=== PATIENT | female | born 1985 | race Caucasian/White ===

== ENCOUNTER 2024-06-08 08:01 | Outpatient (CLI) | payer BC, OTHER, SELFPAY ==
--- OUTSIDE RECORDS SUMMARY | 2024-06-09 21:32 | XMS_ITS | Patient Health Summary ---
Author Organization [facility] Address [address] [place] [address] Care Team Providers Care Degreaser Name Role Phone Unavailable Primary Care Provider Unavailabl e Note from [facility] [place] [facility] [place]non-owned Affiliates and Associated Physician Practices is amultiple site organization consisting of ambulatory clinics and hospital sitesin [place], [place], [place] and [place]. This disclosure is being madepursuant to the Care Everywhere program and may not contain all information available regarding this patient. Last updated 18.[facility] Social History Tobacco Use Types Packs/Day Years Used Date Smoking Tobacco: Never Assessed Sex and Gender Information Value Date Recorded Sex Assigned at Not on file Gender Identity Not on file Sexual Orientation Not on file Procedures * DERMATOPATHOLOGY(Performed 11/11/2022) Performed for Neoplasm of uncertain behavior of skin [ICD-10-CM], Dermatitis, unspecified [ICD-10-CM] Results * DERMATOPATHOLOGY (11/11/2022 12:00 AM CDT) Case Report Dermatopathology Report ? Case: [id number] ? Authorizing Provider: ??Anneliese Jay MD ?Collected: ? 11/11/2022 12:00 AM ? Ordering Location: ? [facility] ? Received: ?11/12/2022 02:09 PM ? Pathologist: ? Susi Schmitz MD ? Specimens: ?? A) - Skin, left lateral back ? B) - Skin, right ankle ? 3 3:39 PM CDT DERMATOPATHOLOGY LABORATORY Final Diagnosis Specimen A. 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 The specimen consists of a shave biopsy measuring 9x7x1 mm. Jar 0. Specimen B: Received is one formalin filled container labeled with the patient's name and designated right ankle. The specimen consists of a shave biopsy measuring 3x3x3 mm. Jar 0. 3 3:39 PM CDT DERMATOPATHOLOGY LABORATORY Microscopic Description Specimen A. SKIN, left lateral back: There are nests of melanocytes at the dermal-epidermal junction and within the dermis. Specimen B. SKIN, right ankle: There are lymphocytes around blood vessels and histiocytes between collagen bundles some of which are arranged in a palisade. The collagen is focally altered. Additional deeper sections were obtained and reviewed. 3 3:39 PM CDT DERMATOPATHOLOGY LABORATORY Disclaimer An external and internal positive and negative controls are appropriate for the histochemical, immunohistochemical and immunofluorescence stain(s) in this case (if any), except where stated explicitly. The performance characteristics of the stain(s) cited in this report were developed and its performance characteristic determined by the Dermatopathology Laboratory at [facility], directed by Dr. Alpesh Veliz. These tests need not be, and therefore are not, approved by the [place] Food and Drug Administration. The tests are used for clinical purposes. Billing Codes Specimen Charges Stain Charges 25228 63612 1 1 3 3:39 PM CDT DERMATOPATHOLOGY LABORATORY Embedded Images 3 3:39 PM CDT DERMATOPATHOLOGY LABORATORY Pathology/Cytology TISSUE SPECIMEN FROM SKIN / Unknown 11/11/2022 11/12/2022 2:09 PM CDT Miscellaneous samples (specimen) TISSUE SPECIMEN FROM SKIN / Unknown 11/11/2022 11/12/2022 2:09 PM CDT Anneliese Jay MD LAB - PATHOLOGY/CYTO LOGY ORDERABLES DERMATOPATHOLOGY LABORATORY [facility] - Department of Dermatology [facility] [address] [place] [address], [address] [phone]
--- OUTSIDE RECORDS SUMMARY | 2024-06-09 21:32 | XMS_ITS | Data Portability ---
Author Organization Donna GOYAL Address [address] [place] [address] Assessment No assessment recorded. Plan of Treatment Reminders Order Date Submit Date Provider Last Modified By Organization Details Last Modified Time Details Appointments None recorded. Lab lipid panel, serum 2016 017 [facility], [address], [address], [place], [address], 7 17:10:49 ferritin, serum or plasma 2016 017 [facility], [address], [address], [place], [address], 7 17:10:51 iron + total iron-bind ing capacity (TIBC), serum 2016 017 [facility], [address], [address], [place], [address], 7 17:10:50 CBC w/ auto diff 2016 017 [facility], [address], [address], [place], [address], 7 17:10:50 lipid panel, serum 2016 017 [facility], [address], [address], [place], [address], 8 13:25:27 AST/SGOT (aspartat e aminotran sferase), serum or plasma 2016 017 [facility], [address], [address], [place], [address], 8 05:14:33 ALT (alanine aminotran sferase), serum or plasma 2016 017 [facility], [address], [address], [place], [address], 8 05:14:33 HIV 1+2 AB + HIV 1 p24 Ag, qualitati ve immunoass ay, serum 2016 017 [facility], [address], [address], [place], [address], 8 05:14:33 urinalysi s, dipstick 2019 020 [facility] In-Office Order, Internal Use Only DO Not Attach Compendium DO Not Attach Compendium, Do Not Delete/merge, [id number] 0 10:55:12 pap, IG + HPV, cervical 2019 020 [facility], [address], [address], [place], [address], 0 14:09:42 bacterial vaginosis + vaginitis panel, vaginal 2019 020 [facility], [address], [address], [place], [address], 0 14:08:50 culture, vaginal/r ectal, streptoco ccus group B 2019 020 [facility], [address], [address], [place], [address], 0 14:08:50 test, urine 2019 020 [facility] In-Office Order, Internal Use Only DO Not Attach Compendium DO Not Attach Compendium, Do Not Delete/merge, [id number] 0 14:10:47 test, urine 2019 020 [facility] In-Office Order, Internal Use Only DO Not Attach Compendium DO Not Attach Compendium, Do Not Delete/merge, [id number] 0 13:21:01 Referral None recorded. Procedures None recorded. Surgeries None recorded. Imaging None recorded. Medication Orders lisinopri l 5 mg tablet 2016 017 [id number], [address], [place], [place], [id number], 0 10:32:32 hydrochlo rothiazid e 12.5 mg capsule 2016 017 [facility]79085, [address], [id number], 0 10:32:22 pravastat in 40 mg tablet 2016 017 [facility] #[id number], [address], [place], [place], [id number], 0 10:32:38 multivita min tablet 2019 020 [facility] #[id number], [address], [place], [place], [id number], 0 10:55:30 Calcium with Vitamin D 600 mg-10 mcg (400 unit) tablet 2019 020 [facility] #[id number], [address], [place], [place], [id number], 0 10:55:28 Patient TargetsNo targets recorded. Patient Instructions Encounter Date Encounter Id Patient Instructions Last Modified By Organization Details Last Modified Time 08/18/2016 [id number] When You Want to Lose Weight: Care Instructions [email or web address] Not available 08/18/2016 15:48:44 anemia: care instructions hdoverma Not available 08/18/2016 15:48:44 Lab results were discussed oajao Not available 08/18/2016 16:02:55 02/16/2017 [id number] HIV testing: care instructions hdoverma Not available 02/16/2017 16:20:09 Lovastatin Labs in 6 weeks Follow up in 6 months and PRN oajao Not available 02/16/2017 19:42:03 Lab results were discussed oajao Not available 02/16/2017 19:43:19 06/22/2019 [id number] When You Want to Lose Weight: Care Instructions mwasserman Not available 06/22/2019 11:14:56 Reason for Referral None Reported. Results Created Date Observation Date Name Description Value Unit Range Abnormal Flag Note LastModifiedBy Organization Detail LastModifiedTime 12/30/19 20 12/30/2019 pregn anne test, urine HCG negati ve Not Available In-Office Order Internal Use Only DO Not Attach Compendium DO Not Attach Compendium, Do Not Delete/merge, [id number] 12/30/2019 15:20:00 09/16/19 17 09/16/2016 lipid panel , serum cholesterol, total 217 mg/dL 100-19 9 above high normal Not Available [facility] ([facility]) [address] [place], [address], 09/16/2016 17:10:49 09/16/19 17 09/16/2016 lipid panel , serum triglyceride s 201 mg/dL 0-149 above high normal Not Available [facility] ([facility]) [address], [place], [address], 09/16/2016 17:10:49 09/16/19 17 09/16/2016 lipid panel , serum LDL chol. (direct) 165 mg/dL 0-99 above high normal Not Available [facility] ([facility]) [address] [place], [address], 09/16/2016 17:10:49 09/16/19 17 09/16/2016 lipid panel , serum HDL cholesterol 35 mg/dL >39 below low normal Not Available [facility] ([facility]) [address] [place], [address], 09/16/2016 17:10:49 09/16/19 17 09/16/2016 lipid panel , serum VLDL cholesterol margarito 40 mg/dL 5-40 Not Available [facility] ([facility]) [address] [place], [address], 09/16/2016 17:10:49 09/16/19 17 09/16/2016 lipid panel , serum LDL cholesterol calc 142 mg/dL 0-99 above high normal Not Available [facility] ([facility]) [address] [place], [address], 09/16/2016 17:10:49 09/16/19 17 09/16/2016 lipid panel , serum comment: CAREER DEVELOPMENT COUNSELOR Not Available [facility] ([facility]) [address] [place], [address], 09/16/2016 17:10:49 09/16/19 17 09/16/2016 lipid panel , serum LDL/HDL ratio 4.1 ratio _unit s 0.0-3. 2 above high normal LDL/H DL RATIO MEN WOMEN 1/2 AVG.R ISK 1.0 1.5 AVG.R ISK 3.6 3.2 2X AVG.R ISK 6.2 5.0 3X AVG.R ISK 8.0 6.1 Not Available [facility] ([facility]) [address] [place], [address], 09/16/2016 17:10:49 09/16/19 17 09/16/2016 CBC w/ auto diff WBC 5.0 x10e3 /uL 3.4-10 .8 Not Available [facility] ([facility]) [address] [place], [address], 09/16/2016 17:10:49 09/16/19 17 09/16/2016 CBC w/ auto diff RBC 4.66 x10e6 /uL 3.77-5 .28 Not Available [facility] ([facility]) [address] [place], [address], 09/16/2016 17:10:49 09/16/19 17 09/16/2016 CBC w/ auto diff hemoglobin 13.1 g/dL 11.1-1 5.9 Not Available [facility] ([facility]) [address] [place], [address], 09/16/2016 17:10:49 09/16/19 17 09/16/2016 CBC w/ auto diff hematocrit 39.0 % 34.0-4 6.6 Not Available [facility] ([facility]) [address] [place], [address], 09/16/2016 17:10:49 09/16/19 17 09/16/2016 CBC w/ auto diff MCV 84 fL 79-97 Not Available [facility] ([facility]) [address] [place], [address], 09/16/2016 17:10:49 09/16/19 17 09/16/2016 CBC w/ auto diff MCH 28.1 pg 26.6-3 3.0 Not Available [facility] ([facility]) [address] [place], [address], 09/16/2016 17:10:49 09/16/19 17 09/16/2016 CBC w/ auto diff MCHC 33.6 g/dL 31.5-3 5.7 Not Available [facility] ([facility]) [address] [place], [address], 09/16/2016 17:10:49 09/16/19 17 09/16/2016 CBC w/ auto diff RDW 13.6 % 12.3-1 5.4 Not Available [facility] ([facility]) [address] [place], [address], 09/16/2016 17:10:49 09/16/19 17 09/16/2016 CBC w/ auto diff platelets 286 x10e3 /uL 150-37 9 Not Available [facility] ([facility]) [address] [place], [address], 09/16/2016 17:10:49 09/16/19 17 09/16/2016 CBC w/ auto diff neutrophils 39 % Not Available [facility] ([facility]) [address] [place], [address], 09/16/2016 17:10:49 09/16/19 17 09/16/2016 CBC w/ auto diff lymphs 51 % Not Available [facility] ([facility]) [address] [place], [address], 09/16/2016 17:10:49 09/16/19 17 09/16/2016 CBC w/ auto diff monocytes 8 % Not Available [facility] ([facility]) [address] [place], [address], 09/16/2016 17:10:49 09/16/19 17 09/16/2016 CBC w/ auto diff eos 2 % Not Available [facility] ([facility]) [address] [place], [address], 09/16/2016 17:10:49 09/16/19 17 09/16/2016 CBC w/ auto diff basos 0 % Not Available [facility] ([facility]) [address] [place], [address], 09/16/2016 17:10:49 09/16/19 17 09/16/2016 CBC w/ auto diff immature cells CAREER DEVELOPMENT COUNSELOR Not Available [facility] ([facility]) [address] [place], [address], 09/16/2016 17:10:49 09/16/19 17 09/16/2016 CBC w/ auto diff neutrophils (absolute) 2.0 x10e3 /uL 1.4-7. 0 Not Available [facility] ([facility]) [address] [place], [address], 09/16/2016 17:10:49 09/16/19 17 09/16/2016 CBC w/ auto diff lymphs (absolute) 2.5 x10e3 /uL 0.7-3. 1 Not Available [facility] ([facility]) [address] [place], [address], 09/16/2016 17:10:49 09/16/19 17 09/16/2016 CBC w/ auto diff monocytes(ab solute) 0.4 x10e3 /uL 0.1-0. 9 Not Available [facility] ([facility]) [address] [place], [address], 09/16/2016 17:10:49 09/16/19 17 09/16/2016 CBC w/ auto diff eos (absolute) 0.1 x10e3 /uL 0.0-0. 4 Not Available [facility] ([facility]) [address] [place], [address], 09/16/2016 17:10:49 09/16/19 17 09/16/2016 CBC w/ auto diff baso (absolute) 0.0 x10e3 /uL 0.0-0. 2 Not Available [facility] ([facility]) [address] [place], [address], 09/16/2016 17:10:49 09/16/19 17 09/16/2016 CBC w/ auto diff immature granulocytes 0 % Not Available [facility] ([facility]) [address] [place], [address], 09/16/2016 17:10:49 09/16/19 17 09/16/2016 CBC w/ auto diff immature grans (abs) 0.0 x10e3 /uL 0.0-0. 1 Not Available [facility] ([facility]) [address] [place], [address], 09/16/2016 17:10:49 09/16/19 17 09/16/2016 CBC w/ auto diff NRBC CAREER DEVELOPMENT COUNSELOR Not Available [facility] ([facility]) [place], [address], 09/16/2016 17:10:49 09/16/19 17 09/16/2016 CBC w/ auto diff hematology comments: CAREER DEVELOPMENT COUNSELOR Not Available [facility] ([facility]) [address] [place], [address], 09/16/2016 17:10:49 09/16/19 17 09/16/2016 iron + total iron- claudia ng capac ity (TIBC ), serum iron bind.cap.(TI BC) 359 ug/dL 250-45 0 Not Available [facility] ([facility]) [address] [place], [address], 09/16/2016 17:10:50 09/16/19 17 09/16/2016 iron + total iron- claudia ng capac ity (TIBC ), serum UIBC 304 ug/dL 131-42 5 Not Available [facility] ([facility]) [address] [place], [address], 09/16/2016 17:10:50 09/16/19 17 09/16/2016 iron + total iron- claudia ng capac ity (TIBC ), serum iron, serum 55 ug/dL 27-159 Not Available [facility] ([facility]) [address] [place], [address], 09/16/2016 17:10:50 09/16/19 17 09/16/2016 iron + total iron- claudia ng capac ity (TIBC ), serum iron saturation 15 % 15-55 Not Available [facility] ([facility]) [address] [place], [address], 09/16/2016 17:10:50 09/16/19 17 09/16/2016 candido tin, serum or plasm a ferritin, serum 26 NG/mL 15-150 Not Available [facility] ([facility]) [address], [place], [address], 09/16/2016 17:10:51 06/22/19 20 06/24/2019 pap, IG + HPV, cervi margarito diagnosis: Rajeev dan UNSAT ISFAC TORY FOR EVALU ATION . Not Available [facility] ([facility]) [address], [place], [address], 06/24/2019 14:09:42 06/22/19 20 06/24/2019 pap, IG + HPV, cervi margarito recommendati on: Rajeev dan Sugge st follo w up as clini vance appro priat e. Not Available [facility] ([facility]) [address], [place], [address], 06/24/2019 14:09:42 06/22/19 20 06/24/2019 pap, IG + HPV, cervi margarito specimen adequacy: Rajeev dan Speci men proce ssed and exami roberto, but unsat isfac tory for evalu ation of epith elial abnor malit y becau se of exces sive lubri cant. Not Available [facility] ([facility]) [address], [place], [address], 06/24/2019 14:09:42 06/22/19 20 06/24/2019 pap, IG + HPV, cervi margarito clinician provided ICD10: Rajeev dan Z01.4 19 Not Available [facility] ([facility]) [address] [place], [address], 06/24/2019 14:09:42 06/22/19 20 06/24/2019 pap, IG + HPV, cervi margarito performed by: Commen t Amand a S Campb ell, Cytot echno logis t (ASCP ) Not Available [facility] ([facility]) [address] [place], [address], 06/24/2019 14:09:42 06/22/19 20 06/24/2019 pap, IG + HPV, cervi margarito QC reviewed by: Rajeev Cerna , Umesh visor y Cytot echno logis t (ASCP ) Not Available [facility] ([facility]) [address] [place], [address], 06/24/2019 14:09:42 06/22/19 20 06/24/2019 pap, IG + HPV, cervi margarito . . Not Available [facility] ([facility]) [address], [place], [address], 06/24/2019 14:09:42 06/22/19 20 06/24/2019 pap, IG + HPV, cervi margarito note: Rajeev dan The Pap smear is a scree magalis test belkis roberto to aid in the detec tion of francesca ligna nt and malig nant condi tions of the uteri ne cervi x. It is not a diagn ostic proce dure and shoul d not be used as the sole means of detec ting cervi margarito cance r. Both false -posi tive and false -nega tive repor ts do occur . Not Available [facility] ([facility]) [address] [place], [address], 06/24/2019 14:09:42 06/22/19 20 06/24/2019 pap, IG + HPV, cervi margarito test methodology: Rajeev dan This liqui d based ThinP rep(R ) pap test was scree roberto with the use of an image guide brian florez Not Available [facility] ([facility]) [address] [place], [address], 06/24/2019 14:09:42 06/22/19 20 06/24/2019 pap, IG + HPV, cervi margarito HPV aptima Negati ve negati ve This nucle ic acid ampli ficat ion test detec ts fourt een high- risk HPV types (16,1 8,31, 33,35 ,39,4 5,51, 52,56 ,58,5 9,66, 68) witho ut diffe renti ation . Not Available [facility] ([facility]) [address], [place], [address], 06/24/2019 14:09:42 06/22/19 20 06/24/2019 bacte rial vagin osis + vagin itis panel , vagin al trich vag by CORDELIA Negati ve negati ve Not Available [facility] ([facility]) [address], [place], [address], 06/25/2019 14:08:50 06/22/19 20 06/24/2019 bacte rial vagin osis + vagin itis panel , vagin al chlamydia trachomatis, CORDELIA Negati ve negati ve Not Available [facility] ([facility]) [address], [place], [address], 06/25/2019 14:08:50 06/22/19 20 06/24/2019 bacte rial vagin osis + vagin itis panel , vagin al neisseria gonorrhoeae, CORDELIA Negati ve negati ve Not Available [facility] ([facility]) [address] [place], [address], 06/25/2019 14:08:50 06/22/19 20 06/25/2019 bacte rial vagin osis + vagin itis panel , vagin al atopobium vaginae Low - 0 score Not Available [facility] ([facility]) [address] [place], [address], 06/25/2019 14:08:50 06/22/19 20 06/25/2019 bacte rial vagin osis + vagin itis panel , vagin al bvab 2 Low - 0 score Not Available [facility] ([facility]) [address] [place], [address], 06/25/2019 14:08:50 06/22/19 20 06/25/2019 bacte rial vagin osis + vagin itis panel , vagin al megasphaera 1 Low - 0 score Calcu late total score by keely houser the 3 indiv idual bacte rial vagin osis (BV) marke r score s toget her. Total score is inter prete d as follo ws: Total score 0-1: Indic ates the absen ce of BV. Total score 2: Indet ermin ate for BV. Addit ional clini margarito data shoul d be evalu ated to estab radha a diagn osis. Total score 3-6: Indic ates the prese nce of BV. This test was devel oped and its perfo rmanc e savana cteri stics deter mined by [facility]. It has not been clear ed or appro mau by the Food and Drug Admin istra tion. The FDA has deter mined that such clear ance or appro audrey is not neces sindy. Not Available [facility] ([facility]) [address] [place], [address], 06/25/2019 14:08:50 06/22/19 20 06/25/2019 bacte rial vagin osis + vagin itis panel , vagin al liang albicans, CORDELIA Negati ve negati ve Not Available [facility] ([facility]) [address] [place], [address], 06/25/2019 14:08:50 06/22/19 20 06/25/2019 bacte rial vagin osis + vagin itis panel , vagin al liang glabrata, CORDELIA Negati ve negati ve Not Available [facility] ([facility]) [address] [place], [address], 06/25/2019 14:08:50 06/22/19 20 06/24/2019 cultu re, vagin al/re ctal, strep tococ cus group B strep gp B CORDELIA Negati ve negati ve Cente rs for Disea se Contr ol and Preve ntion (CDC) and Ameri can Congr ess of Obste trici ans and Gynec ologi sts (ACOG ) guide lines for preve ntion of perin atal group B strep tococ margarito (GBS) disea se speci fy co-co llect ion of a vagin al and recta l swab speci men to maxim ize sensi tivit y of GBS detec tion. Per the CDC and ACOG, swabb ing both the lower vagin a and rectu m subst antia lly incre ases the yield of detec tion simba red with sampl ing the vagin a alone . Penic illin G, ampic illin , or cefaz deepthi are indic ated for intra partu m proph ylaxi s of perin atal GBS colon izati on. Refle x susce ptibi lity testi ng shoul d be perfo rmed prior to use of clind amyci n only on GBS isola peter from penic illin -mich rgic women who are consi dered a high risk for anaph ylaxi s. Treat ment with vanco mycin witho ut addit ional testi ng is warra nted if resis tance to clind amyci n is noted . Not Available [facility] ([facility]) [address], [place], [address], 06/25/2019 14:08:50 06/22/1906/22/2019 urina lysis , dipst ick Leukocytes Negati ve Not Available In-Office Order Internal Use Only DO Not Attach Compendium DO Not Attach Compendium, Do Not Delete/merge, 06/22/2019 10:37:14 06/22/19 20 06/22/2019 urina lysis , dipst ick Nitrite negati ve Not Available In-Office Order Internal Use Only DO Not Attach Compendium DO Not Attach Compendium, Do Not Delete/merge, 06/22/2019 10:37:14 06/22/19 20 06/22/2019 urina lysis , dipst ick Urobilinogen .2 Not Available In-Of fice Order Internal Use Only DO Not Attach Compendium DO Not Attach Compendium, Do Not Delete/merge, 06/22/2019 10:37:14 06/22/19 20 06/22/2019 urina lysis , dipst ick Protein Trace Not Available In-Office Order Internal Use Only DO Not Attach Compendium DO Not Attach Compendium, Do Not Delete/merge, 06/22/2019 10:37:14 06/22/19 20 06/22/2019 urina lysis , dipst ick pH 6.0 Not Available In-Office Order Internal Use Only DO Not Attach Compendium DO Not Attach Compendium, Do Not Delete/merge, 06/22/2019 10:37:14 06/22/19 20 06/22/2019 urina lysis , dipst ick Blood Non-He molyze d: Trace Not Available In-Office Order Internal Use Only DO Not Attach Compendium DO Not Attach Compendium, Do Not Delete/merge, 06/22/2019 10:37:14 06/22/19 20 06/22/2019 urina lysis , dipst ick Specific [place] 1.030 Not Available In-Off ice Order Internal Use Only DO Not Attach Compendium DO Not Attach Compendium, Do Not Delete/merge, 06/22/2019 10:37:14 06/22/19 20 06/22/2019 urina lysis , dipst ick Ketone Negati ve Not Available In-Office Order Internal Use Only DO Not Attach Compendium DO Not Attach Compendium, Do Not Delete/merge, 06/22/2019 10:37:14 06/22/19 20 06/22/2019 urina lysis , dipst ick Bilirubin Negati ve Not Available In-Office Order Internal Use Only DO Not Attach Compendium DO Not Attach Compendium, Do Not Delete/merge, 06/22/2019 10:37:14 06/22/19 20 06/22/2019 urina lysis , dipst ick Glucose Negati ve Not Available In-Office Order Internal Use Only DO Not Attach Compendium DO Not Attach Compendium, Do Not Delete/merge, 06/22/2019 10:37:14 09/02/19 20 09/02/2019 pregn anne test, urine HCG negati ve Not Available In-Office Order Internal Use Only DO Not Attach Compendium DO Not Attach Compendium, Do Not Delete/merge, [id number] 09/02/2019 11:19:31 02/20/20 21 02/19/2021 XR, ankle No observ ation record ed. [facility] ([facility]) [address] [place], [address], 02/19/2021 14:46:03 03/25/2002/19/2021 XR, ankle No observ ation record ed. [facility] ([facility]) [address] [place], [address], 03/27/2021 08:04:50 Result Notes None recorded. Problems Name Problem SNOMED Code Status Onset Date Resolution Date Notes Provider Name and Address Organization Details Recorded Time Pure hypercholeste rolemia 868950449 Active Not Available [facility] 11:48:55 Abnormal liver function 52214656 Active Not Available [facility] 11:48:55 Disorder of lipid metabolism 701540382 Active Not Available [facility] 11:48:55 Hyperlipidemi a 11874195 Active Not Available [facility] 11:48:55 Memory impairment 813149692 Active Not Available [facility] 11:48:55 Candidiasis of vagina 86097507 Active Not Available [facility] 11:48:55 Benign hypertension 21286309 Active Not Available [facility] 11:48:55 Overweight 010668315 Active Not Available [facility] 11:48:55 Problem Notes None recorded. Procedures Surgical History Date Name Laterality Status Provider Name and Address Organization Details Recorded Time 6 drainage of breast abscess completed Anusha Marina [facility] 06/22/2019 10:35:58 6 Date of Last Pap Smear completed Derrick Lemus [facility] 06/21/2019 18:10:13 Tubal Ligation completed Yeny Grande [facility] 05/29/2014 16:13:57 Imaging Results Imaging Date Name Status LastModified by Organiz ation Details LastModified Time 02/19/2021 XR, ankle completed [facility] ([facility]) [address] [place], [address], 02/19/2021 14:46:03 02/19/2021 XR, ankle completed [facility] ([facility]) [address] [place], [address], 03/27/2021 08:04:50 Procedure Notes None recorded. Medical Equipment None Reported. Allergies No known drug allergies Medications Name Sig Start Date Stop Date Status Note LastModified by Organization Details LastModified Time multivitami n tablet Take 1 tablet every day by oral route. active Not Available Not Available No t Available atorvastati n 10 mg tablet active Not Available Not Available Not Available pravastatin 40 mg tablet Take 1 tablet every day by oral route for 30 days. 06/22 completed Not Available Not Available Not Available ibuprofen 800 mg tablet active Not Available Not Available Not Available terconazole 0.8 % vaginal cream Insert 1 applicato rful every day by vaginal route for 3 days. 02/25 completed Not Available Not Available Not Available sulfamethox azole 800 mg-trimetho prim 160 mg tablet 08/18 completed Not Available Not Available Not Available Vitamin tablet Take 1 tablet every day by oral route as directed. 02/25 completed Not Available Not Available Not Available oxycodone-a cetaminophe n 5 mg-325 mg tablet 08/18 completed Not Available Not Available Not Available amoxicillin 875 mg tablet 02/25 completed Not Available Not Available Not Available cephalexin 500 mg capsule 08/18 completed Not Available Not Available Not Available hydrochloro thiazide 12.5 mg capsule Take 1 capsule every day by oral route for 90 days. 06/22 completed Not Available Not Available Not Available lisinopril 5 mg tablet Take 1 tablet every day by oral route for 90 days. 06/22 completed Not Available Not Available Not Available lisinopril 10 mg-hydrochl orothiazide 12.5 mg tablet Take 1 tablet every day by oral route for 90 days. 02/26 completed Not Available Not Available Not Available hydrochloro thiazide 12.5 mg tablet Take 1 tablet every day by oral route for 90 days. 02/25 completed Not Available Not Available Not Available Calcium with Vitamin D 600 mg-10 mcg (400 unit) tablet Take 1 tablet twice a day by oral route. 2019 active Not Available Not Available Not Avai lable calcium 600 mg (as carbonate)- vitamin D3 20 mcg (800 unit) tablet Take 1 tablet twice a day by oral route for 30 days. 02/25 completed Not Available Not Available Not Available Vitals Date Recorded Body weight Provider Name an d Address Organization Details Last Updated DateTime 06/22/2019 00701.33 g Anusha booker [facility] 06/22/2019 10:30:22 Date Recorded Body height Provider Name an d Address Organization Details Last Updated DateTime 09/02/2019 160.02 cm Lima Quijano MA [facility] 09/01 11:16:41 Date Recorded Body mass index (BMI) Body weight Provider Name and Address Organization Details Last Updated DateTime 09/02/2019 33.7 kg/m2 83116.55 g Lima Quijano [facility] 09/02/2019 11:17:30 Date Recorded Body height Provider Name an d Address Organization Details Last Updated DateTime 08/18/2016 160.02 cm Cathi Herrera [facility] 017 15:36:31 Date Recorded Body weight Body mass index (BMI) Provider Name and Address Organization Details Last Updated DateTime 08/18/2016 36224.7 g 34.9 kg/m2 Cathi Herrera [facility] 08/18/2016 15:36:38 Date Recorded Heart rate Provider Name an d Address Organization Details Last Updated DateTime 08/18/2016 76 /min Cathi Herrera MA [facility] 017 15:37:10 Date Recorded Body temperature Provider Name a nd Address Organization Details Last Updated DateTime 08/18/2016 98.3 [degF] Cathi Herrera MA [facility] 2016 15:37:13 Date Recorded Oxygen saturation Oxygen saturation in Arterial blood by Pulse oximetry Provider Name and Address Organization Details Last Updated DateTime 08/18/2016 99 % 99 % Cathi RubinverTYSON [facility] 08/18/2016 15:37:16 Date Recorded Body height Provider Name an d Address Organization Details Last Updated DateTime 02/16/2017 160.02 cm Cathi Herrera TYSON [facility] 017 15:46:35 Date Recorded Body mass index (BMI) Body weight Provider Name and Address Organization Details Last Updated DateTime 02/16/2017 34.5 kg/m2 04334.51 g Cathiher Herrera TYSON [facility] 02/16/2017 15:46:41 Date Recorded Heart rate Provider Name an d Address Organization Details Last Updated DateTime 02/16/2017 97 /min Cathiher HerreraTYSON [facility] 017 15:47:53 Date Recorded Oxygen saturation Oxygen saturation in Arterial blood by Pulse oximetry Provider Name and Address Organization Details Last Updated DateTime 02/16/2017 99 % 99 % Cathi Herrera [facility] 02/16/2017 15:47:55 Date Recorded Body temperature Provider Name a nd Address Organization Details Last Updated DateTime 02/16/2017 98.2 [degF] Cathi RubinverTYSON [facility] 2016 15:48:00 Date Recorded Systolic blood pressure Diastolic blood pressure Provider Name and Address Organization Details Last Updated DateTime 06/22/2019 130 mm[Hg] 86 mm[Hg] Anusha Marina [facility] 06/22/2019 10:31:49 Date Recorded Systolic blood pressure Diastolic blood pressure Provider Name and Address Organization Details Last Updated DateTime 08/18/2016 126 mm[Hg] 70 mm[Hg] Cathi Herrera MA [facility] 08/18/2016 15:38:53 Date Recorded Systolic blood pressure Diastolic blood pressure Provider Name and Address Organization Details Last Updated DateTime 02/16/2017 106 mm[Hg] 64 mm[Hg] Cathi Herrera MA [facility] 02/16/2017 15:49:06 Social History Question Answer Notes LastModified by Organizat ion Details LastModified Time Tobacco Smoking Status Never Smoker August TYSON Grande [facility] 05/29/2014 16:13:57 Do You Have An Advance Directive? Yes Information not available 05/29/2014 What Is Your Level Of Alcohol Consumption? Occasional Information not available 05/29/2014 Is Blood Transfusion Acceptable In An Emergency? Yes Information not available 08/23/2015 What Is Your Level Of Caffeine Consumption? Occasional Information not available 05/29/2014 How Much Tobacco Do You Chew? None Information not available 05/29/2014 Are You Currently Employed? Yes Information not available 05/29/2014 What Type Of Diet Are You Following? REGULAR Information not available 05/29/2014 Do You Or Have You Ever Used E-cigarettes Or Vape? 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 No Information not available 05/29/2014 Hard Of Hearing Or Deaf In One Or Both Ears? No Information not available 05/29/2014 Legally Blind In One Or Both Eyes? No Information no t available 05/29/2014 Live Alone Or With Others? With Others Information not available 05/29/2014 What Was The Date Of Your Most Recent Tobacco Screening? 09/02/2019 Information not available 09/02/2019 How Many Children Do You Have? 3 Information not available 05/29/2014 Performs Monthly Self-breast Exam? Yes Information no t available 05/29/2014 Do You Use Protection During Sex? No Information not available 08/23/2015 What Is Your Relationship Status? Information not available 08/23/2015 Seat Belts Used Routinely Yes Information not available 05/29/2014 Are You Sexually Active? Yes Information not available 05/29/2014 Smoke Alarm In Home Yes Information not available 05/29/2014 Do You Or Have You Ever Used Smokeless Tobacco? Never Used Smokeless Tobacco Information not available 06/22/2019 How Much Tobacco Do You Smoke? No Information not available 02/16/2017 General Stress Level Low Information not available 08/23/2015 Do You Use Sunscreen Routinely? Yes Information not available 05/29/2014 On What Date Was Tobacco Cessation Counseling Provided? 09/02/2019 Information not available 09/02/2019 How Many Years Have You Smoked Tobacco? 0 Information not available 08/18/2016 Sex: Unknown Functional Status Question Answer Note LastModified by Organizat ion Details LastModified Time Are you able to care for yourself? Yes Information not available 05/29/2014 What is your exercise level? Occasional Information not available 05/29/2014 Mental Status None recorded. Family History Relationship Description Onset Age of this Age Resolved Age Notes LastModified by Organization Details LastModified Time Father Hypercholesni martinez Not available 08/22 14:18:23 Father Malignant tumor of prostate juan Not available 08/22 14:18:23 Father Hyperchlucille martinez Not available 08/22 14:18:23 Sister Hypertensive disorder adolfoasserman Not available 08/22 14:18:23 Sister Hypertensive disorder adolfoasserman Not available 08/22 14:18:23 Medical History Condition Response Other Y High Blood Pressure Y Breast Cancer N Kidney or Bladder Problems N Thyroid Problems N GI Problems N Lung Disease N Depression N Blood Clots N Acne N Breast Problem N Eating Disorder N Anemia N Anesthesia Complications N Headaches/Migraines N Anxiety Disorder N Ovarian Cancer N Diabetes N Muscle, Joint, or Bone Problems N Blood Transfusions N Seizures/Epilepsy N Polyps N Infertility N Acid Reflux (GERD) N Cancer N Abuse/Domestic Violence N Asthma N Endometriosis N High Cholesterol Y Hepatitis N Liver Disease N Heart Disease N Pre-Eclampsia N Osteoporosis N Gynecological History Statement/Question Response Abnormal Pap N Flow Moderate On BCP's at Conception? N STIs/STDs N HPV Vaccine N Duration of Flow (days) 4 Age at Menarche 11 Current Control Method Tubal Ligat ion Age at First Child 24 Sexually Active? Y Menses Monthly Y Date of Last Pap Smear 08/23/2015 Sexual Problems? N LMP Approximate Desired Control Method Sterilizati on Obstetrics History GPAL:G 3 P 3 0 0 3 Type Value Multiple Births 0 Full Term 3 Induced 0 Spontaneous 0 Premature 0 Living 3 Ectopics 0 Total 3 Immunizations Vaccine Type Date Status Note Provider Nam e and Address Organization Details Recorded Time Influenza, split virus, trivalent, preservative 5 completed Not Available [facility] 06/04/2019 02:46:37 COVID-19 vaccine, vector-nr, rS-Ad26, PF, 0.5 mL 1 completed Not Available [facility] 03/25/2021 21:27:50 Influenza, split virus, quadrivalent, preservative 6 completed Not Available [facility] 06/04/2019 02:44:54 Tdap 9 completed Not Available [facility] 03/25/2021 21:27:50 Influenza, split virus, quadrivalent, preservative 7 completed Not Available [facility] 06/04/2019 02:34:21 HPV9 0 completed TYSON Magaña, [place] - [facility] 06/22/2019 12:41:39 HPV9 0 completed Lima Quijano [place], [place] - [facility] 09/02/2019 13:18:17 HPV9 0 completed Anusha Marina [place], [place] - [facility] 12/30/2019 15:20:43 Influenza, split virus, quadrivalent, preservative 5 completed Not Available [facility] 06/04/2019 02:32:08 Past Encounters Encounter ID Performer Location Encounter Start Date Encounter Closed Date Diagnosis/Indication Diagnosis SNOMED-CT Code Diagnosis ICD10 Code Diagnosis Note [id number] Buster (Adult Med) [address] [place] [address] 05/29/2014 15:27:57 05/29/2014 17:27:44 Influenza vaccine needed 1207363821 106 Benign hypertension 56158825 patient education, low salt Overweight 745206455 [id number] TYSON Walsh (Adult Med) [address] [place] [address] 07/17/2014 15:55:32 07/17/2014 17:08:06 Benign hypertension 53103078 patient education, low salt Pure hypercholesterolemia 479476511 Her LDL is 158, low fat, low carbohydra te diet Labs in 6 weeks [id number] Yeny TYSON Grande (Adult Med) [address] [place] [phone] 10/19/2014 11:38:58 10/19/2014 12:15:48 Benign hypertension 58022965 Well controlled on her current regimen, low salt diet Disorder o f lipid metabolism 590216974 Mild improvemen t, however she is not optimal Continue diet, weight loss and lifestyle changes [id number] Erika Catalan [facility] (Adult Med) [address] [place] [phone] 01/31/2015 11:38:16 01/31/2015 14:20:11 Influenza vaccine needed 0366272236 106 Hyperlipidemia 13109133 Benign hypertension 13798013 Well controlled on her current regimen, low salt diet [id number] MD Buster Badillo (Adult Med) [address] [place] [phone] 07/30/2015 11:34:23 07/30/2015 12:23:09 Benign hypertension 87562332 I10 Well controlled on her current regimen and a low salt diet, she describes postural symptoms Memory impairment 039540 006 R41.3 [id number] Derrick Lemus [facility]uster ([facility]) [address] [place] [address] 08/23/2015 10:19:11 08/23/2015 14:21:10 Gynecologic examination 24655432 Z01.939 [id number] MD Buster Badillo (Adult Med) [address] [place] [phone] 0 02/26/2016 15:18:06 02/26/2016 16:04:22 Influenza vaccine needed 9847120912 106 Z23 Benign hypertension 1072 5009 I10 Well controlled on her current regimen and a low salt diet. Memory impairment 153103 006 R41.3 This has improved [id number] MD Buster Badillo (Adult Med) [address] [place] [phone] 0 08/18/2016 15:32:49 08/18/2016 15:53:13 Overweight 259042383 E66.3 Benign hypertension 1072 5009 I10 Well controlled on her current regimen and a low salt diet. Anemia 588862864 D64.9 Disorder o f lipid metabolism 181775141 E78.9 [id number] MD Buster Badillo (Adult Med) [address] [place] [phone] 0 02/16/2017 15:10:23 02/16/2017 16:23:50 Benign hypertension 04344436 I10 Well controlled on her current regimen and a low salt diet. Disorder o f lipid metabolism 926909842 E78.9 She has a strong FHX. of CVS disease, I will add a statin, side effects were discussed. Influenza vaccine needed 6268986848 106 Z23 HIV screening 168497731 Z11.4 Iron deficiency 97462251 E61.1 Her ferritin levels were low but her iron and Hb/Hct were normal [id number] Derrick Goins ([employer]) [address] [place] [id number] 0 06/22/2019 10:20:14 06/23/2019 10:16:58 Gynecologic examination 66488741 Z01.419 Active or passive immunization 383125984 Z23 Overweight 733599324 E66 .3 [id number] TYSON Melendez ([employer]) [address] [place] [phone] 0 09/02/2019 10:20:07 09/09/2019 13:26:09 Active or passive immunization 220238810 Z23 [id number] TYSON Magaña ([employer]) [address] [place] [phone] 0 12/30/2019 15:08:31 01/02/2020 09:37:41 Active or passive immunization 487916179 Z23 Health Concerns Section Related Observation LastModified by Organization Detai ls LastModified Time None Recorded Concern Status LastModified by Organization Details LastModified Time None Recorded Advance Directives Directive Y: Payers Encounter Date Sequence Insurance Name Policy Number Policy Duncan Covered Member ID Duncan Member ID Guarantor Name 08/18/2016 1 [facility] PRIOR TO 11/15/2020 (MEDICAID REPLACEMENT - HMO) Tammy Burdick [id number] Tammy Burdikc 02/16/2017 1 [facility] PRIOR TO 11/15/2020 (MEDICAID REPLACEMENT - HMO) Tammy Burdick [id number] Tammy Burdick 06/22/2019 1 [place] [id number] X David Burdick [id number] Tammy Burdick 09/02/2019 1 [place] [id number] X David Burdick [id number] Tammy Burdick 12/30/2019 1 [place] [id number] X David Burdick [id number] Tammy Burdick Notes Date Note Type Note Provider Name and Address Organization Details Recorded Time 08/18/2016 text/html Hypertension F/UReported bypatient.Associat ed Symptoms:no dizziness; no lightheadedness; no chest pain; no shortness of breath; no palpitations; no edema; no calf pain with exertion Lifestyle:regular exercise; limiting/avoiding salt Medications:taking medications as directed; no side effects from medication Yara Ventura MD Attn: Accounting[address] [place], [address], [facility] [place] 08/18/2016 16:03:06 06/22/2019 text/html 34 y/o here for ROMI. She denied complaints during this visit and feels well overall. Derrick arguello [facility] 06/22/2019 18:56:35 06/22/2019 text/html Annual GYNReport ed bypatient.Menstrua l cycle:Normal menses Urinary symptoms:No hematuria; No incontinence Vulva:No genital lesion Vagina:Normal vaginal discharge Breast:No breast pain; No breast lump; No nipple discharge Sexual complaints:No sexual complaints; No pain during intercourse; Normal libido Menopausal Symptoms:No menopausal symptoms; Normal vaginal lubrication Psychological symptoms:No depression; No anxiety; No PMDD Derrick arguello [facility] 06/22/2019 18:56:35 OBGyn Episode Ob Episode Information Episode Created Date Number of Fetuses Patient Bloodtype Patient rh Status Prepregnancy Weight lbs Domestic Partner Domestic Partner Phone Father Name Travel Cota Status 08/23/19 16 1 CLOSED Fetus Data First Name Last Name Admitted to NICU Weight (g) Sex Living Outcome Pediatric Complications Fetus ID Race Codes Race Delivery Type 4082.32 8 M Full Term [id number] Standard Vaginal Delivery Elvis Calculation Initial Elvis Date Initial Exam Date Initial Exam Provider Initial Ultrasound Date Last Menstrual Period Date Ultra Sound Weeks Gestation 0 Eighteen To Twenty Week Elvis Update Ultra Sound Date Fundal Height At Umbil Quickening Date Ultra Sound Latest Weeks Gestation Final Elvis Confirmed By Final Elvis Confirmed Date Final Elvis Date Ultra Sound Latest Days Gestation 0 0 Menstrual History Last Menstrual Date Menses Monthly On Bcp Conception Prior Menses Frequency Hcg Plus Date Menarche Onset Age Delivery Information Delivery Date Delivery Type Labor Anesthesia Weeks Gestation Incision Type Labor Labor Length Hrs Delivered By Post Complications Tubal Sterilization Discharge Date Comments 1 None 40 false Discharge Information Feeding Method Contraceptive Method Maternal HG B and HCT Levels Ob Episode Information Episode Created Date Number of Fetuses Patient Bloodtype Patient rh Status Prepregnancy Weight lbs Domestic Partner Domestic Partner Phone Father Name Travel Cota Status 08/23/19 16 1 CLOSED Fetus Data First Name Last Name Admitted to NICU Weight (g) Sex Living Outcome Pediatric Complications Fetus ID Race Codes Race Delivery Type 3175.14 4 F Full Term [id number] Standard Vaginal Delivery Elvis Calculation Initial Elvis Date Initial Exam Date Initial Exam Provider Initial Ultrasound Date Last Menstrual Period Date Ultra Sound Weeks Gestation 0 Eighteen To Twenty Week Elvis Update Ultra Sound Date Fundal Height At Umbil Quickening Date Ultra Sound Latest Weeks Gestation Final Elvis Confirmed By Final Elvis Confirmed Date Final Elvis Date Ultra Sound Latest Days Gestation 0 0 Menstrual History Last Menstrual Date Menses Monthly On Bcp Conception Prior Menses Frequency Hcg Plus Date Menarche Onset Age Delivery Information Delivery Date Delivery Type Labor Anesthesia Weeks Gestation Incision Type Labor Labor Length Hrs Delivered By Post Complications Tubal Sterilization Discharge Date Comments 9 None 38 false Discharge Information Feeding Method Contraceptive Method Maternal HG B and HCT Levels Ob Episode Information Episode Created Date Number of Fetuses Patient Bloodtype Patient rh Status Prepregnancy Weight lbs Domestic Partner Domestic Partner Phone Father Name Travel Cota Status 08/23/19 16 1 CLOSED Fetus Data First Name Last Name Admitted to NICU Weight (g) Sex Living Outcome Pediatric Complications Fetus ID Race Codes Race Delivery Type 3628.73 6 M Full Term 14523 Standard Vaginal Delivery Elvis Calculation Initial Elvis Date Initial Exam Date Initial Exam Provider Initial Ultrasound Date Last Menstrual Period Date Ultra Sound Weeks Gestation 0 Eighteen To Twenty Week Elvis Update Ultra Sound Date Fundal Height At Umbil Quickening Date Ultra Sound Latest Weeks Gestation Final Elvis Confirmed By Final Elvis Confirmed Date Final Elvis Date Ultra Sound Latest Days Gestation 0 0 Menstrual History Last Menstrual Date Menses Monthly On Bcp Conception Prior Menses Frequency Hcg Plus Date Menarche Onset Age Delivery Information Delivery Date Delivery Type Labor Anesthesia Weeks Gestation Incision Type Labor Labor Length Hrs Delivered By Post Complications Tubal Sterilization Discharge Date Comments 3 [facility] idural 39 false Discharge Information Feeding Method Contraceptive Method Maternal HG B and HCT Levels
--- OUTSIDE RECORDS SUMMARY | 2024-06-09 21:32 | XMS_ITS | Referral Summary ---
Author Organization [facility] Address [address] [place] [address] Care Team Providers Care Wildlife Photographer Name Role Phone Unavailable Primary Care Provider Unavailabl e Source Comments [facility],non-owned Affiliates and Associated Physician Practices is amultiple site organization consisting of ambulatory clinics and hospital sitesin [place], [place], [place] and [place]. This disclosure is being madepursuant to the Care Everywhere program and may not contain all information available regarding this patient. Last updated 18.[facility] [employer] Social History Tobacco Use Types Packs/Day Years Used Date Smoking Tobacco: Never Assessed Sex and Gender Information Value Date Recorded Sex Assigned at Not on file Gender Identity Not on file Sexual Orientation Not on file Plan of Treatment Not on file
--- OUTSIDE RECORDS SUMMARY | 2024-06-09 21:32 | XMS_ITS | Encounter Summary ---
Author Organization [facility] Address [address] [place] [address] Care Team Providers Care Breastfeeding Peer Counselor Name Role Phone Unavailable Primary Care Provider Unavailabl e Encounter Details Date Type Department Care Team (Late st Contact Info) Description 11/11/2022 Lab Requisition [facility] - DermPath Lab [address] [facility] [place] [address] Anneliese Jay MD [address] [place] [address] [place] [address] Neoplasm of uncertain behavior of skin; Dermatitis, unspecified Social History Tobacco Use Types Packs/Day Years Used Date Smoking Tobacco: Never Assessed Sex and Gender Information Value Date Recorded Sex Assigned at Not on file Gender Identity Not on file Sexual Orientation Not on file documented as of this encounter Plan of Treatment Not on file documented as of this encounter Procedures Procedure Name Priority Date/Time Associated Diagnosis Comments DERMATOPATHOLOGY Routine 11/11/2022 12:0 0 AM CDT Neoplasm of uncertain behavior of skin [ICD-10-CM] Dermatitis, unspecified [ICD-10-CM] documented in this encounter Results * DERMATOPATHOLOGY (11/11/2022 12:00 AM CDT) Case Report Dermatopathology Report ? Case: [id number] ? Authorizing Provider: ??Anneliese Jay MD ?Collected: ? 11/11/2022 12:00 AM ? [facility] ? [facility] ? Received: ?11/12/2022 02:09 PM ? Pathologist: ? Susi Schmitz MD ? Specimens: ?? A) - Skin, left lateral back ? B) - Skin, right ankle ? 3 3:39 PM CDT DERMATOPATHOLOGY LABORATORY Final Diagnosis Specimen A. 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 Alpesh Veliz. These tests need not be, and therefore are not, approved by the [place] Food and Drug Administration. The tests are used for clinical purposes. Billing Codes Specimen Charges Stain Charges 12581 96535 1 1 3 3:39 PM CDT DERMATOPATHOLOGY LABORATORY Embedded Images 3 3:39 PM CDT DERMATOPATHOLOGY LABORATORY Pathology/Cytology TISSUE SPECIMEN FROM SKIN / Unknown 11/11/2022 11/12/2022 2:09 PM CDT Miscellaneous samples (specimen) TISSUE SPECIMEN FROM SKIN / Unknown 11/11/2022 11/12/2022 2:09 PM CDT Anneliese Jay MD LAB - PATHOLOGY/CYTO LOGY ORDERABLES DERMATOPATHOLOGY LABORATORY [facility] - Department of Dermatology [address], [address] [phone] documented in this encounter Visit Diagnoses Diagnosis Neoplasm of uncertain behavior of skin Dermatitis, unspecified documented in this encounter
--- OUTSIDE RECORDS SUMMARY | 2024-06-09 21:32 | XMS_ITS | Referral Summary ---
Author Organization [facility] Address [address] [place] [address] Care Team Providers Care Die Maker Electronic Name Role Phone No, Physician Primary Care Provider [phone] Allergies No known active allergies Social History Tobacco Use Types Packs/Day Years Used Date Smoking Tobacco: Never Tobacco Cessation:Counseling Given: Not Answered Alcohol Use Standard Drinks/Week Comments Not Currently 0 (1 standard drink = 0.6 oz pur e alcohol) Personal Safety Answer Date Recorded Have you ever been in or are you currently in a harmful physical or emotional relationship or is someone making you feel afraid or unsafe? Denies 02/06/2024 Comments No Sex and Gender Information Value Date Recorded Sex Assigned at Not on file Legal Sex Female 3:58 PM CDT Gender Identity Not on file Sexual Orientation Not on file Last Filed Vital Signs Vital Sign Reading Time Taken Comments Blood Pressure 119/76 02/06/2024 5:46 PM CDT Pulse 71 02/06/2024 5:46 PM CDT Temperature 36.9 ??C (98.4 ??F) 02/06/2024 5:46 PM CD T Respiratory Rate 18 02/06/2024 5:46 PM CDT Oxygen Saturation 100% 02/06/2024 5:46 PM CDT Inhaled Oxygen Concentration - - Weight 90.7 kg (200 lb) 02/06/2024 3:59 PM CDT Height - - Body Mass Index - - Plan of Treatment Not on file Insurance [employer]U [employer]ANSTON PPO Care Teams Die Maker Electronic Relationship Specialty Start Date End Date No, Physician PCP - General 02/06/24
--- OUTSIDE RECORDS SUMMARY | 2024-06-09 21:32 | XMS_ITS | Clinical Summary ---
Author Organization [facility] Address [address] [place] [address] Care Team Providers Care Cdl Service Technician Name Role Phone Unavailable Primary Care Provider Unavailabl e Source Comments [facility],non-owned Affiliates and Associated Physician Practices is amultiple site organization consisting of ambulatory clinics and hospital sitesin [place], [place], [place]. This disclosure is being madepursuant to the Care Everywhere program and may not contain all information available regarding this patient. Last updated 18.[facility] Social History Tobacco Use Types Packs/Day Years Used Date Smoking Tobacco: Never Assessed Sex and Gender Information Value Date Recorded Sex Assigned at Not on file Gender Identity Not on file Sexual Orientation Not on file Plan of Treatment Health Maintenance Due Date Last Done Comments PAP SMEAR 1985 HIV SCREENING 2000 HEPATITIS C SCREENING 04/26/2003 DTAP/TDAP/TD VACCINES (1 - Tdap) 2004 HEPATITIS B VACCINE (1 of 3 - 19+ 3-dose series) 2004 COVID-19 VACCINE ( - 2023-2 5 season) 2024 INFLUENZA VACCINE (#1) 2024 DEPRESSION SCREENING 05/18/2024 ZOSTER VACCINE (1 of 2) 2035 HIB VACCINE Aged Out No longer eligi ble based on patient's age to complete this topic HPV VACCINE Aged Out No longer eligi ble based on patient's age to complete this topic MENINGOCOCCAL (Group B) VACCINE Aged Out No longer eligible based on patient's age to complete this topic MENINGOCOCCAL VACCINE Aged Out No cliff nasir eligible based on patient's age to complete this topic PNEUMOCOCCAL VACCINE Aged Out No long er eligible based on patient's age to complete this topic
--- OUTSIDE RECORDS SUMMARY | 2024-06-09 21:32 | XMS_ITS | Clinical Summary ---
Author Organization [facility] Address [address] [place] [id number] Care Team Providers Care Roof Bolting Coal Miner Name Role Phone No, Physician Primary Care Provider [phone] Allergies No known active allergies Medical History Medical History Date Comments Hypertension Social History Tobacco Use Types Packs/Day Years [...] on file Sexual Orientation Not on file Obstetrics History Last Filed Vital Signs Vital Sign Reading [...] Mass Index - - Plan of Treatment Health Maintenance Due Date Last Done Comments Cervical Cancer Screening 1985 Depression Screening 1985 Hepatitis C Screening 1985 Varicella Vaccines (1 of 2 - 13+ 2-dose series) 1998 Hepatitis B Screening 2003 Regular Well Visit/Exam 18-64 2003 DTaP/Tdap/Td Vaccine (2 - Td or Tdap) 12/22/2018 12/22/2008 Covid-19 Vaccine (2 - season) 2024 07/20/2020 Influenza Vaccine (#1) 2024 , 02/16/2017, 02/26/2016, Additional history exists HPV Vaccines Completed 12/30/2019, 08/16, 06/22/2019 Pneumococcal vaccine <65 Aged Out No longer eligible based on patient's age to complete this topic Insurance [facility] Care Teams Roof Bolting Coal Miner Relationship Specialty Start Date End Date No, Physician PCP - General 02/06/24
[2024-06-30 14:34] VITALS: BMI 36.3
--- NOTE | 2024-06-30 14:34 | P.SLEEP_ITS ---
Sleep Study - Home Unattended Date of Study: 06/08/24 Ordering Provider: ALEXIA López-C Interpreting Provider: Sade Mcclendon DO [facility] Sleep Study Type: Watch PAT Height: 1.6 m Weight: 92.986 kg Body Mass Index: 36.3 Neck Circumference (inches): 16.75 [place]: 7 Reason for Sleep Study snoring, daytime hypersomnia Sleep History The patient is a 39-year-old female that had a sleep study ordered by her [facility] care for evaluation of sleep apnea. The patient admits to snoring loudly and excessive daytime sleepiness. She denies having interruptions in breathing while asleep. She denies choking or gasping at night. She denies having difficulty breathing on her back. She does have morning headaches. She denies having a dry or sore mouth / throat in the morning. She denies nocturnal heartburn. She denies nocturia. She does have difficulty staying asleep. She does have difficulty returning to sleep if she wakes up throughout the night. He denies any hypnotic or sedative use. She denies feeling anxious about sleep. She does feel tired or sleepy during the day. She does not feel tired in the morning. She denies having urge to fall asleep during the day. She denies feeling drowsy driving. He denies sleep paralysis, cataplexy and hypnagogic/ hypnopompic hallucinations. She does clench or grind her teeth. She denies kicking or jerking her legs excessively. She denies having restless feeling in her legs. She goes to bed at 10:00 p.m. on work days and at 11:00 p.m. on her days off. It takes her 15 minutes to fall asleep on work days and 30 minutes on her days off. She gets 7 hours of sleep per day. Her sleep is somewhat restorative on her days off. She denies taking any planned naps. She denies dream enactment behavior. She denies sleep walking. She consumes 1-2 caffeinated beverages per day. She denies tobacco and alcohol use. She denies exercising on a regular basis. [facility] Past Medical History Medical History History of drainage of abscess Hypertension Surgical History Surgical History History of tubal ligation Family History Family History Father Alcoholism in family member Colon cancer Hypertension Mother Alcoholism in family member Sibling Hypertension Grandparent Skin cancer Grandparent Bone cancer Breast cancer Social History Social History Smoking status: Never smoker Alcohol intake: current Alcohol use details: Occasionally Substance use: never Substance use type: does not use Do You Feel Safe in your Home?: Yes Lack of Transportation: No Lack of Food: Never True Current Housing: I Have Housing Concerned About Future Housing: No Difficulty Paying Gas/Electric Bills: No Difficulty Paying for Meds: No Currently Unemployed: No Education: High School Diploma/GED Living arrangements: with family Occupation/Education: occupation Additional occupation/education comments: [place] Gender identity (if verbalized by the patient): Female Sexual Orientation (if Verbalized by the Patient): Straight or Heterosexual Agree to blood products: Yes Medications Home Medications ?Medication ?Instructions ?Recorded ?Confirmed ?Type lisinopril 5 mg tablet 5 mg PO DAILY #90 tabs 04/06/24 Rx rosuvastatin 10 mg tablet 10 mg PO DAILY #90 tabs 04/06/24 Rx Sleep Procedure The sleep study was completed using PanizonT a technically adequate device with seven channels: peripheral arterial tone, actigraphy, body position, snore, respiratory movement, pulse oximetry, sleep staging, and heart rate. Prior to using the device, the patient received verbal and written instructions for its application and was provided with the help desk phone number for additional telephonic instruction with 24-hour availability of qualified personnel to answer questions. The study was scored using CMS guidelines. Sleep Architecture The total recording time is 9 hrs, 59 min. The total sleep time is 9 hrs, 24 min. Sleep latency is 21 minutes. REM latency is 159 minutes. The patient had 3 episodes of waking. Sleep architecture shows 16.2% deep sleep, 66.6% light sleep, and (as % Total Sleep Time) showed NREM (Light 66.6%; Deep 16.2%), and a 17.2% stage REM. The patient spent 84.6% of total sleep time in the supine position. Sleep efficiency was 94.16. Respiratory Analysis The overall AHI (pAHI 3%:) is 14.1. The central AHI is 2.5. The AHI was 10.8 in NREM and 29.2 in REM sleep. The AHI was 15.4 in Supine and 5.4 in Non-supine sleep. Percent of Tk Heni respirations is 0.0. Oximetry Data The oxygen desaturation index (EMPERATRIZ 4%:) is 6.6. The mean saturation is 95%, and the lowest saturation is 87%. Time spent with saturation < 88% is 0.4 minutes. Snoring Profile Snoring average intensity is 43 dB. The patient snored above 45 decibels for 109.1 minutes, 19.3% of sleep time. Cardiac Profile The average pulse rate is 62 beats per minutes. The lowest pulse rate is 50 bpm. The highest pulse rate reported is 90 bpm. Atrial fibrillation was not detected. Premature beats occur <0.1 per minute. Assessment and Plan Assessment and Plan (1) GIANNI (obstructive sleep apnea): Code(s): G47.33 - Obstructive sleep apnea (adult) (pediatric) Status: Acute Assessment and Plan: The patient had an overall AHI of 7.2 with desaturation down to 87%. This is consistent with mild sleep apnea. Due to the patient's hypertension, she qualifies for treatment. I recommend that the patient be prescribed Resmed AutoPAP 5-15 cm H2O, CPAP mask/filters/tubing and heated humidity. A mandibular advancement device is also an acceptable treatment method. This should be used with all episodes of sleep.? Compliance should be reviewed within 31-90 days of starting therapy for usage greater than 4 hours per night greater than 70% of the nights. The patient should be asked about symptoms such as?excessive daytime sleepiness, quality of sleep, decreased nocturia, increased?mental functioning such as memory, mood, and concentration. Data The data obtained during this sleep study is adequate for interpretation. Certification This sleep study has been reviewed by a board certified sleep medicine physician.
== END 2024-06-09 12:54 | disposition home or self-care (01) ==
LOC: ANHCSM 08:02
PROVIDERS: PCP Clinical Nurse Specialist; Visit Provider Clinical Nurse Specialist
DX: G47.33 Obstructive sleep apnea (adult) (pediatric) (principal); G47.10 Hypersomnia, unspecified
CPT/HCPCS: 95800

== ENCOUNTER 2024-08-01 08:09 | Outpatient (CLI) | payer BC, OTHER, SELFPAY ==
--- NOTE | ~2024-08-01 | US_ITS ---
Limited Abdominal Sonogram: Real-time sonographic imaging of the right upper quadrant was performed. Clinical History: Abnormal liver enzyme levels Findings: The liver appears echogenic, with no evidence of mass lesion or bile duct dilatation. Main portal vein demonstrates normal direction of flow. The gallbladder is unremarkable. The common bile duct measures 9 mm. The visualized pancreas, aorta, and IVC are unremarkable. Impression: Diffuse fatty infiltration of liver. Prominent common bile duct, nonspecific. Consider MRCP as indicated. Reviewed, dictated and finalized at location . Impression: Diffuse fatty infiltration of liver. Prominent common bile duct, nonspecific. Consider MRCP as indicated.
== END 2024-08-01 08:10 | disposition home or self-care (01) ==
LOC: GOSHIMG 08:09
PROVIDERS: PCP Clinical Nurse Specialist; Visit Provider Clinical Nurse Specialist
DX: R74.01 Elevation of levels of liver transaminase levels (principal); K76.0 Fatty (change of) liver, not elsewhere classified
CPT/HCPCS: 76705

== ENCOUNTER 2024-08-19 07:29 | Outpatient (CLI) | payer BC, OTHER, SELFPAY ==
--- NOTE | ~2024-08-19 | MR_ITS ---
EXAMINATION: MR MRCP wo con/w 3D wo ind pp DATE: 08/19/2024 08:37 INDICATION: Elevated liver transaminase levels with prominent common bile duct on prior ultrasound TECHNIQUE: Magnetic resonance imaging (MRI) of the abdomen was performed without and with 19 mL Multi phi intravenous contrast. Sequences included coronal T2-weighted SS-FSE, coronal T2-weighted FS SS- FSE, coronal T2-weighted FS FIESTA, axial T2-weighted FS FIESTA, axial T2-weighted FIESTA, sagittal T 2-weighted SS-FSE, axial T1-weighted dual-echo FSPGR, axial T2-weighted SS-FSE, axial T1-weighted LAV A, axial T2-weighted STIR FSE. Thick-slab T2-weighted FRFSE-XL images were obtained for magnetic reso nance cholangiopancreatography (MRCP). Rotating maximum intensity projection 3-D reconstructions of t he volumetric data were created by the technologist. Postcontrast sequences included a time course of axial T1-weighted LAVA. COMPARISON: Ultrasound dated 08/01/2024 FINDINGS: ABDOMEN MRI: Heart size is normal. No pericardial or pleural effusion. There is dependent sludge without evident g allstones within the otherwise normal appearing gallbladder. Prominent diffuse hepatic steatosis with signal dropout on opposed phase imaging. Spleen, pancreas, bilateral adrenal glands and kidneys are normal. Visual is portions of bowels are unremarkable with no obstruction. Small fat-containing umbil ical and left paraumbilical hernias. No pathologically enlarged abdominal or upper pelvic lymphadenop athy. Bones are unremarkable with normal marrow signal throughout. Mild disc height loss and mild dis c bulge resulting in mild central canal stenosis at L4-L5. ABDOMEN MRCP: No intrahepatic biliary ductal dilation. The common hepatic and proximal common bile du ct are dilated to 8 mm. The common bile duct smoothly tapers more distally without evident obstructin g stone. There does appear to be slight decrease in the T2 signal in the lumen of the distal common b ile duct which suggests additional sludge. IMPRESSION: 1. Mild dilation the common hepatic and proximal common bile ducts which tapers smoothly distally wit h no obstructing stones although there is suggestion of some sludge in the distal common bile duct as well as some dependently layering sludge in the gallbladder which is also without stones. 2. Diffuse hepatic steatosis. Reviewed, dictated and finalized at location A. IMPRESSION: 1. Mild dilation the common hepatic and proximal common bile ducts which tapers smoothly distally with no obstructing stones although there is suggestion of s ome sludge in the distal common bile duct as well as some dependently layering sludge in the gallbladder which is also without stones. 2. Diffuse hepatic steatosis.
--- OUTSIDE RECORDS SUMMARY | 2024-08-19 07:33 | XMS_ITS | Referral Summary ---
Author Organization [facility] Address [address] [place] [id number] Care Team Providers Care Mohs Surgeon Name Role Phone No, Physician Primary Care Provider [phone] Allergies No known active allergies Social History [...] 71 02/06/2024 5:46 PM CDT Temperature 36.9 C (98.4 F) 02/06/2024 5:46 PM CDT Respiratory Rate 18 02/06/2024 5:46 PM CDT Oxygen Saturation 100% 02/06/2024 5:46 PM CDT Inhaled Oxygen Concentration - - Weight 90.7 kg (200 lb) 02/06/2024 3:59 PM CDT Height - - Body Mass Index - - Plan of Treatment Not on file Insurance [employer] PPO Care Teams Mohs Surgeon Relationship Specialty Start Date End Date No, Physician PCP - General 02/06/24
--- OUTSIDE RECORDS SUMMARY | 2024-08-19 07:33 | XMS_ITS | Clinical Summary ---
Author Organization [facility] Address [address] [place] [phone] Care Team Providers Care Rubbing Bed Operator Name Role Phone No, Physician Primary Care Provider [phone] Allergies No known active allergies Medical History [...] Tdap) 12/22/2018 12/22/2008 Covid-19 Vaccine (2 - 2023- season) 2024 07/20/2020 Influenza Vaccine (#1) 2024 0, 02/16/2017, 02/26/2016, Additional history exists HPV Vaccines Completed 12/30/2019, 08/16, 06/22/2019 Pneumococcal vaccine <65 Aged Out No longer eligible based on patient's age to complete this topic Insurance [employer] P[employer] Care Teams Rubbing Bed Operator Relationship Specialty Start Date End Date No, Physician PCP - General 02/06/24
--- OUTSIDE RECORDS SUMMARY | 2024-08-19 07:33 | XMS_ITS | Data Portability ---
Author Organization [facility] Donna ANDERSEN Address [address] [place] [address] Assessment No assessment recorded. Plan of Treatment Reminders Order Date Submit Date Provider Last Modified By Organization Details Last Modified Time Details Appointments None recorded. Lab test, urine 2019 020 [facility] In-Office Order, Internal Use Only DO Not Attach Compendium DO Not Attach Compendium, Do Not Delete/merge, [id number] 13:21:01 test, urine 2019 020 [facility] In-Office Order, Internal Use Only DO Not Attach Compendium DO Not Attach Compendium, Do Not Delete/merge, [id number] 0 14:10:47 urinalysi s, dipstick 2019 020 mwasserman In-Office Order, Internal Use Only DO Not Attach Compendium DO Not Attach Compendium, Do Not Delete/merge, [id number] 0 10:55:12 pap, IG + HPV, cervical 2019 020 [facility], [address], [address], [place], [address], 0 14:09:42 bacterial vaginosis + vaginitis panel, vaginal 2019 020 [facility], [address], [address], [place], [address], 0 14:08:50 culture, vaginal/r ectal, streptoco ccus group B 2019 020 [facility], [address], [address], [place], [address], 0 14:08:50 lipid panel, serum 2016 017 [facility], [address], [place], [address], 8 13:25:27 AST/SGOT (aspartat e aminotran sferase), serum or plasma 2016 017 [facility], [address], [place], [address], 8 05:14:33 ALT (alanine aminotran sferase), serum or plasma 2016 017 [facility], [address] [facility] [address], [address], [place], [address], 8 05:14:33 HIV 1+2 AB + HIV 1 p24 Ag, qualitati ve immunoass ay, serum 2016 017 [facility], [address], [address], [place], [address], 8 05:14:33 lipid panel, serum 2016 017 [facility], [address], [address], [place], [address], 7 17:10:49 ferritin, serum or plasma 2016 017 [facility], [address], [place], [address], 7 17:10:51 iron + total iron-bind ing capacity (TIBC), serum 2016 017 [facility], [address], [address], [place], [address], 7 17:10:50 CBC w/ auto diff 2016 017 [facility], [address], [address], [place], [address], 7 17:10:50 Referral None recorded. Procedures None recorded. Surgeries None recorded. Imaging None recorded. Medication Orders multivita min tablet 2019 020 INTERFACE [facility] #[id number], [address], [place], [place], [id number], 0 10:55:30 Calcium with Vitamin D 600 mg-10 mcg (400 unit) tablet 2019 020 INTERFACE [facility] #19589, [address], [id number], 0 10:55:28 pravastat in 40 mg tablet 2016 017 [facility][id number], [address], [id number], 0 10:32:38 lisinopri l 5 mg tablet 2016 017 [facility] #69543, [address], [id number], 0 10:32:32 hydrochlo rothiazid e 12.5 mg capsule 2016 017 [facility] #93118, [address], [id number], 0 10:32:22 Patient TargetsNo targets recorded. Patient Instructions Encounter Date Encounter Id Patient Instructions Last Modified By Organization Details Last Modified Time 08/18/2016 [id number] When You Want to Lose Weight: Care Instructions [email or web address] Not available 08/18/2016 15:48:44 anemia: care instructions hdoverma Not available 08/18/2016 15:48:44 Lab results were discussed oajao Not available 08/18/2016 16:02:55 02/16/2017 [id number] HIV testing: care instructions hdoverma Not available 02/16/2017 16:20:09 Lovastatin Labs in 6 weeks Follow up in 6 months and PRN oajao Not available 02/16/2017 19:42:03 Lab results were discussed oajao Not available 02/16/2017 19:43:19 06/22/2019 [id number] When You Want to Lose Weight: Care Instructions mwasserman Not available 06/22/2019 11:14:56 Reason for Referral None Reported. Results Created Date Observation Date Name Description Value Unit Range Abnormal Flag Note LastModifiedBy Organization Detail LastModifiedTime 12/30/19 20 12/30/2019 pregn anne test, urine HCG negati ve Not Available In-Office Order Internal Use Only DO Not Attach Compendium DO Not Attach Compendium, Do Not Delete/merge, [id number] 12/30/2019 15:20:00 09/16/19 17 09/16/2016 lipid panel , serum cholesterol, total 217 mg/dL 100-19 9 above high normal Not Available [facility] ([facility]) [address] [place], [address], 09/16/2016 17:10:49 09/16/19 17 09/16/2016 lipid panel , serum triglyceride s 201 mg/dL 0-149 above high normal Not Available [facility] ([facility]) [address] [facility], [place], [address], 09/16/2016 17:10:49 09/16/19 17 09/16/2016 lipid panel , serum LDL chol. (direct) 165 mg/dL 0-99 above high normal Not Available [facility] ([facility]) [address] [facility] [place], [address], 09/16/2016 17:10:49 09/16/19 17 09/16/2016 lipid panel , serum HDL cholesterol 35 mg/dL >39 below low normal Not Available [facility] ([facility]) [address] [facility] [place], [address], 09/16/2016 17:10:49 09/16/19 17 09/16/2016 lipid panel , serum VLDL cholesterol margarito 40 mg/dL 5-40 Not Available [facility] ([facility]) [address] [facility] [place], [address], 09/16/2016 17:10:49 09/16/19 17 09/16/2016 lipid panel , serum LDL cholesterol calc 142 mg/dL 0-99 above high normal Not Available [facility] ([facility]) [address] [place], [address], 09/16/2016 17:10:49 09/16/19 17 09/16/2016 lipid panel , serum 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 2 above high normal LDL/H DL RATIO MEN WOMEN 1/2 AVG.R ISK 1.0 1.5 AVG.R ISK 3.6 3.2 2X AVG.R ISK 6.2 5.0 3X AVG.R ISK 8.0 6.1 Not Available [facility] ([facility]) [address] [facility] [place], [address], 09/16/2016 17:10:49 09/16/19 17 09/16/2016 CBC w/ auto diff WBC 5.0 x10e3 /uL 3.4-10 .8 Not Available [facility] ([facility]) [address] [place], [address], 09/16/2016 17:10:49 09/16/19 17 09/16/2016 CBC w/ auto diff RBC 4.66 x10e6 /uL 3.77-5 .28 Not Available [facility] ([facility]) [address] [place], [address], 09/16/2016 17:10:49 09/16/19 17 09/16/2016 CBC w/ auto diff hemoglobin 13.1 g/dL 11.1-1 5.9 Not Available [facility] ([facility]) [address] [place], [address], 09/16/2016 17:10:49 09/16/19 17 09/16/2016 CBC w/ auto diff hematocrit 39.0 % 34.0-4 6.6 Not Available [facility] ([facility]) [address] [place], [address], 09/16/2016 17:10:49 09/16/19 17 09/16/2016 CBC w/ auto diff MCV 84 fL 79-97 Not Available [facility] ([facility]) [address] [place], [address], 09/16/2016 17:10:49 09/16/19 17 09/16/2016 CBC w/ auto diff MCH 28.1 pg 26.6-3 3.0 Not Available [facility] ([facility]) [address] [place], [address], 09/16/2016 17:10:49 09/16/19 17 09/16/2016 CBC w/ auto diff MCHC 33.6 g/dL 31.5-3 5.7 Not Available [facility] ([facility]) [address] [place], [address], 09/16/2016 17:10:49 09/16/19 17 09/16/2016 CBC w/ auto diff RDW 13.6 % 12.3-1 5.4 Not Available [facility] ([facility]) [address] [place], [address], 09/16/2016 17:10:49 09/16/19 17 09/16/2016 CBC w/ auto diff platelets 286 x10e3 /uL 150-37 9 Not Available [facility] ([facility]) [address] [place], [address], 09/16/2016 17:10:49 09/16/19 17 09/16/2016 CBC w/ auto diff neutrophils 39 % Not Available [facility] ([facility]) [address] [place], [address], 09/16/2016 17:10:49 09/16/19 17 09/16/2016 CBC w/ auto diff lymphs 51 % Not Available [facility] ([facility]) [address] [place], [address], 09/16/2016 17:10:49 09/16/19 17 09/16/2016 CBC w/ auto diff monocytes 8 % Not Available [facility] ([facility]) [address] [place], [address], 09/16/2016 17:10:49 09/16/19 17 09/16/2016 CBC w/ auto diff eos 2 % Not Available [facility] ([facility]) [address] [place], [address], 09/16/2016 17:10:49 09/16/19 17 09/16/2016 CBC w/ auto diff basos 0 % Not Available [facility] ([facility]) [address] [place], [address], 09/16/2016 17:10:49 09/16/19 17 09/16/2016 CBC w/ auto diff immature cells BOAT RIGGER Not Available [facility] ([facility]) [address] [place], [address], 09/16/2016 17:10:49 09/16/19 17 09/16/2016 CBC w/ auto diff neutrophils (absolute) 2.0 x10e3 /uL 1.4-7. 0 Not Available [facility] ([facility]) [address] [place], [address], 09/16/2016 17:10:49 09/16/19 17 09/16/2016 CBC w/ auto diff lymphs (absolute) 2.5 x10e3 /uL 0.7-3. 1 Not Available [facility] ([facility]) [address] [place], [address], 09/16/2016 17:10:49 09/16/19 17 09/16/2016 CBC w/ auto diff monocytes(ab solute) 0.4 x10e3 /uL 0.1-0. 9 Not Available [facility] ([facility]) [address] [place], [address], 09/16/2016 17:10:49 09/16/19 17 09/16/2016 CBC w/ auto diff eos (absolute) 0.1 x10e3 /uL 0.0-0. 4 Not Available [facility] ([facility]) [address] [place], [address], 09/16/2016 17:10:49 09/16/19 17 09/16/2016 CBC w/ auto diff baso (absolute) 0.0 x10e3 /uL 0.0-0. 2 Not Available [facility] ([facility]) [address] [place], [address], 09/16/2016 17:10:49 09/16/19 17 09/16/2016 CBC w/ auto diff immature granulocytes 0 % Not Available [facility] ([facility]) [address] [place], [address], 09/16/2016 17:10:49 09/16/19 17 09/16/2016 CBC w/ auto diff immature grans (abs) 0.0 x10e3 /uL 0.0-0. 1 Not Available [facility] ([facility]) [address] [place], [address], 09/16/2016 17:10:49 09/16/19 17 09/16/2016 CBC w/ auto diff NRBC BOAT RIGGER Not Available [facility] ([facility]) [place], [address], 09/16/2016 17:10:49 09/16/19 17 09/16/2016 CBC w/ auto diff hematology comments: BOAT RIGGER Not Available [facility] ([facility]) [address] [place], [address], 09/16/2016 17:10:49 09/16/19 17 09/16/2016 iron + total iron- claudia ng capac ity (TIBC ), serum iron bind.cap.(TI BC) 359 ug/dL 250-45 0 Not Available [facility] ([facility]) [address] [place], [address], 09/16/2016 17:10:50 09/16/19 17 09/16/2016 iron + total iron- claudia ng capac ity (TIBC ), serum UIBC 304 ug/dL 131-42 5 Not Available [facility] ([facility]) [address] [place], [address], 09/16/2016 17:10:50 09/16/19 17 09/16/2016 iron + total iron- claudia ng capac ity (TIBC ), serum iron, serum 55 ug/dL 27-159 Not Available [facility] ([facility]) [address] [place], [address], 09/16/2016 17:10:50 09/16/19 17 09/16/2016 iron + total iron- claudia ng capac ity (TIBC ), serum iron saturation 15 % 15-55 Not Available [facility] ([facility]) [address] [place], [address], 09/16/2016 17:10:50 09/16/19 17 09/16/2016 candido tin, serum or plasm a ferritin, serum 26 NG/mL 15-150 Not Available [facility] ([facility]) [address] [facility], [place], [address], 09/16/2016 17:10:51 06/22/19 20 06/24/2019 pap, IG + HPV, cervi margarito diagnosis: Rajeev dan UNSAT ISFAC TORY FOR EVALU ATION . Not Available [facility] ([facility]) [address] [facility], [place], [address], 06/24/2019 14:09:42 06/22/19 20 06/24/2019 pap, IG + HPV, cervi margarito recommendati on: Rajeev dan Sugge st follo w up as clini vance appro priat e. Not Available [facility] ([facility]) [address] [facility], [place], [address], 06/24/2019 14:09:42 06/22/19 20 06/24/2019 pap, IG + HPV, cervi margarito specimen adequacy: Rajeev dan Speci men proce ssed and exami roberto, but unsat isfac tory for evalu ation of epith elial abnor malit y becau se of exces sive lubri cant. Not Available [facility] ([facility]) [address] [facility], [place], [address], 06/24/2019 14:09:42 06/22/19 20 06/24/2019 pap, IG + HPV, cervi margarito clinician provided ICD10: Rajeev dan Z01.4 19 Not Available [facility] ([facility]) [address] [place], [address], 06/24/2019 14:09:42 06/22/19 20 06/24/2019 pap, IG + HPV, cervi margarito performed by: Commen t Amand a S Campb ell, Cytot echno logis t (ASCP ) Not Available [facility] ([facility]) [address] [place], [address], 06/24/2019 14:09:42 06/22/19 20 06/24/2019 pap, IG + HPV, cervi margarito QC reviewed by: Rajeev Cerna , Umesh visor y Cytot echno logis t (ASCP ) Not Available [facility] ([facility]) [address] [place], [address], 06/24/2019 14:09:42 06/22/19 20 06/24/2019 pap, IG + HPV, cervi margarito . . Not Available [facility] ([facility]) [address] [facility], [place], [address], 06/24/2019 14:09:42 06/22/19 20 06/24/2019 pap, IG [...] Available [facility] ([facility]) [address] [place], [address], 06/24/2019 14:09:42 06/22/19 20 06/24/2019 pap, IG + HPV, cervi margarito test methodology: Rajeev dan This liqui d based ThinP rep(R ) pap test was scree roberto with the use of an image guide brian florez Not Available [facility] ([facility]) [address] [place], [address], 06/24/2019 14:09:42 06/22/19 20 06/24/2019 pap, IG + HPV, cervi margarito HPV aptima Negati ve negati ve This nucle ic acid ampli ficat ion test detec ts fourt een high- risk HPV types (16,1 8,31, 33,35 ,39,4 5,51, 52,56 ,58,5 9,66, 68) witho ut diffe renti ation . Not Available [facility] ([facility]) [address] [facility], [place], [address], 06/24/2019 14:09:42 06/22/19 20 06/24/2019 bacte rial vagin osis + vagin itis panel , vagin al trich vag by CORDELIA Negati ve negati ve Not Available [facility] ([facility]) [address] [facility], [place], [address], 06/25/2019 14:08:50 06/22/19 20 06/24/2019 bacte rial vagin osis + vagin itis panel , vagin al chlamydia trachomatis, CORDELIA Negati ve negati ve Not Available [facility] ([facility]) [address] [facility], [place], [address], 06/25/2019 14:08:50 06/22/19 20 06/24/2019 bacte rial vagin osis + vagin itis panel , vagin al neisseria gonorrhoeae, CORDELIA Negati ve negati ve Not Available [facility] ([facility]) [address] [place], [address], 06/25/2019 14:08:50 06/22/19 20 06/25/2019 bacte rial vagin osis + vagin itis panel , vagin al atopobium vaginae Low - 0 score Not Available [facility] ([facility]) [address] [place], [address], 06/25/2019 14:08:50 06/22/19 20 06/25/2019 bacte rial vagin osis + vagin itis panel , vagin al bvab 2 Low - 0 score Not Available [facility] ([facility]) [address] [place], [address], 06/25/2019 14:08:50 06/22/19 20 06/25/2019 bacte rial [...] Available [facility] ([facility]) [address] [place], [address], 06/25/2019 14:08:50 06/22/19 20 06/25/2019 bacte rial vagin osis + vagin itis panel , vagin al liang albicans, CORDELIA Negati ve negati ve Not Available [facility] ([facility]) [address] [place], [address], 06/25/2019 14:08:50 06/22/19 20 06/25/2019 bacte rial vagin osis + vagin itis panel , vagin al liang glabrata, CORDELIA Negati ve negati ve Not Available [facility] ([facility]) [address] [place], [address], 06/25/2019 14:08:50 06/22/19 20 06/24/2019 cultu re, [...] Available [facility] ([facility]) [address] [facility], [place], [address], 06/25/2019 14:08:50 06/22/1906/22/2019 urina lysis , dipst [...] 06/22/2019 urina lysis , dipst ick Specific [place] 1.030 Not Available In-Off ice Order Internal [...] DO Not Attach Compendium, Do Not Delete/merge, [id number] 09/02/2019 11:19:31 02/20/20 21 02/19/2021 XR, ankle No observ ation record ed. [facility] ([facility]) [address] [place], [address], 02/19/2021 14:46:03 03/25/2002/19/2021 XR, ankle No observ ation record ed. [facility] ([facility]) [address] [place], [address], 03/27/2021 08:04:50 Result Notes None recorded. Problems Name Problem SNOMED Code Status Onset Date Resolution Date Notes Provider Name and Address Organization Details Recorded Time Pure hypercholeste rolemia 519851654 Active Not Available [facility] 11:48:55 Abnormal liver function 90187813 Active Not Available [facility] 11:48:55 Disorder of lipid metabolism 908141132 Active Not Available [facility] 11:48:55 Hyperlipidemi a 05324722 Active Not Available [facility] 11:48:55 Memory impairment 970891266 Active Not Available [facility] 11:48:55 Candidiasis of vagina 88160642 Active Not Available [facility] 11:48:55 Benign hypertension 75081057 Active Not Available [facility] 11:48:55 Overweight 614670400 Active Not Available [facility] 11:48:55 Problem Notes None recorded. Procedures Surgical History Date Name Laterality Status Provider Name and Address Organization Details Recorded Time 6 drainage of breast abscess completed Anusha Marina MA [facility] 06/22/2019 10:35:58 6 Date of Last Pap Smear completed Derrick Lemus [facility] 06/21/2019 18:10:13 Tubal Ligation completed Yeny Grande MA [facility] 05/29/2014 16:13:57 Imaging Results Imaging Date Name Status LastModified by Organiz ation Details LastModified Time 02/19/2021 XR, ankle completed [facility] ([facility]) [address] [place], [address], 02/19/2021 14:46:03 02/19/2021 XR, ankle completed [facility] ([facility]) [address] [place], [address], 03/27/2021 08:04:50 Procedure Notes None recorded. Medical [...] Not Available Vitals Date Recorded Body weight Systolic blood pressure Diastolic blood pressure Provider Name and Address Organization Details Last Updated DateTime 06/22/2019 69559.33 g 130 mm[Hg] 86 mm[Hg] Anusha Marina [place] [facility] 06/22/2019 10:31:49 Date Recorded Body height Body mass index (BMI) Body weight Provider Name and Address Organization Details Last Updated DateTime 09/02/2019 160.02 cm 33.7 kg/m2 83896.55 g Liam Quijano MA [facility] 09/02/2019 11:17:30 Date Recorded Body height Body weight Body mass index (BMI) Heart rate Body temperature Oxygen saturation Oxygen saturation in Arterial blood by Pulse oximetry Systolic blood pressure Diastolic blood pressure Provider Name and Address Organization Details Last Updated DateTime 7 160.02 cm 74359.7 g 34.9 kg/m2 76 /min 98.3 [degF] 99 % 99 % 126 mm[Hg] 70 mm[Hg] Cathi Herrera MA [facility] SI 7 15:38:53 Date Recorded Body height Body mass index (BMI) Body weight Heart rate Oxygen saturation Oxygen saturation in Arterial blood by Pulse oximetry Body temperature Systolic blood pressure Diastolic blood pressure Provider Name and Address Organization Details Last Updated DateTime 7 160.02 cm 34.5 kg/m2 81630.5 1 g 97 /min 99 % 99 % 98.2 [degF] 106 mm[Hg] 64 mm[Hg] Cathi Herrera MA [facility] 7 15:49:06 Social History Question Answer Notes LastModified by Organizat ion Details LastModified Time Tobacco Smoking Status Never Smoker August TYSON [place], [place] - [facility] 05/29/2014 16:13:57 Do You Have An Advance [...] not available 05/29/2014 What Is Your Occupation? [employer] Information not available 05/29/2014 Are There Any [...] LastModified by Organization Details LastModified Time Father Hypercholest erolemia [email or web address] Not available 08/22 14:18:23 Father Malignant tumor of prostate [email or web address] Not available 08/22 14:18:23 Father Hypercholest erolemia mwasserman Not available 08/22 14:18:23 Sister Hypertensive disorder mwasserman Not available 08/22 14:18:23 Sister Hypertensive disorder mwasserman Not available 08/22 14:18:23 Medical History Condition Response Other Y High Blood Pressure Y Breast Cancer N Kidney or Bladder Problems N Thyroid Problems N GI Problems N Lung Disease N Depression N Blood Clots N Acne N Eating Disorder N Breast Problem N Anemia N Anesthesia Complications N Headaches/Migraines [...] virus, trivalent, preservative 5 completed Not Available [facility] 06/04/2019 02:46:37 COVID-19 vaccine, vector-nr, rS-Ad26, PF, 0.5 mL 1 completed Not Available [facility] 03/25/2021 21:27:50 Influenza, split virus, quadrivalent, preservative 6 completed Not Available [facility] 06/04/2019 02:44:54 Tdap 9 completed Not Available [facility] 03/25/2021 21:27:50 Influenza, split virus, quadrivalent, preservative 7 completed Not Available [facility] 06/04/2019 02:34:21 HPV9 0 completed Anusha Marina [place], [place] - [facility] 06/22/2019 12:41:39 HPV9 0 completed Lima Quijano [place] [facility] 09/02/2019 13:18:17 HPV9 0 completed Anusha Marina [place] [facility] 12/30/2019 15:20:43 Influenza, split virus, quadrivalent, preservative 5 completed Not Available [facility] 06/04/2019 02:32:08 Past Encounters Encounter ID Performer Location Encounter Start Date Encounter Closed Date Diagnosis/Indication Diagnosis SNOMED-CT Code Diagnosis ICD10 Code Diagnosis Note [id number] [facility] (Adult Med) [address] [place] [address] [phone] 05/29/2014 15:27:57 05/29/2014 17:27:44 Influenza vaccine needed 2373019199 106 Benign hypertension 37676717 patient education, low salt Overweight 674424264 [id number] August TYSON [place] (Adult Med) [address] [place] [address] [phone] 07/17/2014 15:55:32 07/17/2014 17:08:06 Benign hypertension 45743982 patient education, low salt Pure hypercholesterolemia 741553024 Her LDL is 158, low fat, low carbohydra te diet Labs in 6 weeks [id number] August TYSON Grande (Adult Med) [address] [place] [address] [phone] 10/19/2014 11:38:58 10/19/2014 12:15:48 Benign hypertension 09094351 Well controlled on her current regimen, low salt diet Disorder o f lipid metabolism 403136640 Mild improvemen t, however she is not optimal Continue diet, weight loss and lifestyle changes [id number] Erika Goins (Adult Med) [address] [place] [address] [phone] 01/31/2015 11:38:16 01/31/2015 14:20:11 Influenza vaccine needed 8665632119 106 Hyperlipidemia 78342270 Benign hypertension 23045738 Well controlled on her current regimen, low salt diet [id number] MD Buster Badillo (Adult Med) [address] [place] [address] [phone] 07/30/2015 11:34:23 07/30/2015 12:23:09 Benign hypertension 45961053 I10 Well controlled on her current regimen and a low salt diet, she describes postural symptoms Memory impairment 792442 006 R41.3 [id number] Derrick Lemus [facility] (YOUTH MANAGER) [address] [place] [address] [id number] 0 08/23/2015 10:19:11 08/23/2015 14:21:10 Gynecologic examination 56074237 Z01.043 [id number] MD Buster Badillo (Adult Med) [address] [place] [address] [id number] 02/26/2016 15:18:06 02/26/2016 16:04:22 Influenza vaccine needed 7097609325 106 Z23 Benign hypertension 1072 5009 I10 Well controlled on her current regimen and a low salt diet. Memory impairment 106883 006 R41.3 This has improved [id number] MD Buster Badillo (Adult Med) [address] [place] [address] [phone] 08/18/2016 15:32:49 08/18/2016 15:53:13 Overweight 246450857 E66.3 Benign hypertension 1072 5009 I10 Well controlled on her current regimen and a low salt diet. Anemia 383214198 D64.9 Disorder o f lipid metabolism [id number] E78.9 [id number] MD Buster Badillo (Adult Med) [address] [place] [address] [phone] 02/16/2017 15:10:23 02/16/2017 16:23:50 Benign hypertension [id number] I10 Well controlled on her current regimen and a low salt diet. Disorder o f lipid metabolism [id number] E78.9 She has a strong FHX. of CVS disease, I will add a statin, side effects were discussed. Influenza vaccine needed [id number] 106 Z23 HIV screening 976101491 Z11.4 Iron deficiency 52434793 E61.1 Her ferritin levels were low but her iron and Hb/Hct were normal [id number] Derrick Goins (YOUTH MANAGER) [address] [place] [address] [phone] 06/22/2019 10:20:14 06/23/2019 10:16:58 Gynecologic examination 79079906 Z01.419 Active or passive immunization [id number] Z23 Overweight 430566086 E66 .3 [id number] TYSON Melendez (YOUTH MANAGER) [address] [place] [address] [phone] 09/02/2019 10:20:07 09/09/2019 13:26:09 Active or passive immunization [id number] Z23 [id number] TYSON Magaña (YOUTH MANAGER) [address] [place] [address] [phone] 12/30/2019 15:08:31 01/02/2020 09:37:41 Active or passive immunization 665884046 Z23 Health Concerns Section Related Observation LastModified by Organization Detai ls LastModified Time None Recorded Concern Status LastModified by Organization Details LastModified Time None Recorded Advance Directives Directive Y: Payers Encounter Date Sequence Insurance Name Policy Number Policy Duncan Covered Member ID Duncan Member ID Guarantor Name 08/18/2016 1 [facility] - [facility] PRIOR TO 2020 (MEDICAID REPLACEMENT - HMO) Tammy Burdick [id number] Tammy Burdick 02/16/2017 1 [facility] PRIOR TO 11/15/2020 (MEDICAID REPLACEMENT - HMO) Tammy Burdick [id number] Tammy Burdick 06/22/2019 1 [place] [id number] X David Burdick [id number] Tammy Burdick 09/02/2019 1 [place] [id number] X David Burdick [id number] Tammy Burdick 12/30/2019 1 [place] [id number] X David Burdick [id number] Tammy Burdick Notes Date Note Type Note Provider Name and Address Organization Details Recorded Time 08/18/2016 text/html Hypertension F/UReported bypatient.Associat ed Symptoms:no dizziness; no lightheadedness; no chest pain; no shortness of breath; no palpitations; no edema; no calf pain with exertion Lifestyle:regular exercise; limiting/avoiding salt Medications:taking medications as directed; no side effects from medication Yara Ventura MD Attn: Accounting[address] [place], [address], [facility] 08/18/2016 16:03:06 06/22/2019 text/html 34 y/o here for ROMI. She denied complaints during this visit and feels well overall. Derrick Mariah arguello [facility] 06/22/2019 18:56:35 06/22/2019 text/html Annual GYNReport ed bypatient.Menstrua l cycle:Normal menses Urinary symptoms:No hematuria; No incontinence Vulva:No genital lesion Vagina:Normal vaginal discharge Breast:No breast pain; No breast lump; No nipple discharge Sexual complaints:No sexual complaints; No pain during intercourse; Normal libido Menopausal Symptoms:No menopausal symptoms; Normal vaginal lubrication Psychological symptoms:No depression; No anxiety; No PMDD Derrick ValdesMariahbrent arguello [facility] 06/22/2019 18:56:35 OBGyn Episode Ob Episode Information Episode Created Date Number of Fetuses Patient Bloodtype Patient rh Status Prepregnancy Weight lbs Domestic Partner Domestic Partner Phone Father Name County Commissioner Status 08/23/19 16 1 CLOSED Fetus Data First Name Last Name Admitted to NICU Weight (g) Sex Living Outcome Pediatric Complications Fetus ID Race Codes Race Delivery Type 4082.32 8 M Full Term 97788 Standard Vaginal Delivery Elvis Calculation Initial Elvis [...] Domestic Partner Domestic Partner Phone Father Name County Commissioner Status 08/23/19 16 1 CLOSED Fetus Data First Name Last Name Admitted to NICU Weight (g) Sex Living Outcome Pediatric Complications Fetus ID Race Codes Race Delivery Type 3175.14 4 F Full Term 05770 Standard Vaginal Delivery Elvis Calculation Initial Elvis [...] Domestic Partner Domestic Partner Phone Father Name County Commissioner Status 08/23/19 16 1 CLOSED Fetus Data First Name Last Name Admitted to NICU Weight (g) Sex Living Outcome Pediatric Complications Fetus ID Race Codes Race Delivery Type 3628.73 6 M Full Term 02979 Standard Vaginal Delivery Elvis Calculation Initial Elvis [...] Complications Tubal Sterilization Discharge Date Comments 3 Regional- idural 39 false Discharge Information Feeding Method Contraceptive Method Maternal HG B and HCT Levels
--- OUTSIDE RECORDS SUMMARY | 2024-08-19 07:33 | XMS_ITS | Clinical Summary ---
Author Organization [facility] Address [address] [address] Care Team Providers Care Heading Repairer Name Role Phone Unavailable Primary Care Provider Unavailabl e Source Comments [facility],non-owned Affiliates and Associated Physician Practices is amultiple site organization consisting of ambulatory clinics and hospital sitesin [place], [place], [place] and [place]. This disclosure is being madepursuant to the Care Everywhere program and may not contain all information available regarding this patient. Last updated 18.[facility] Social History Tobacco Use Types Packs/Day Years [...] to complete this topic MENINGOCOCCAL (Group B) VACC INE SHARED DECISION-MAKING Aged Out No longer eligibl e based on patient's age to complete this topic MENINGOCOCCAL GROUPS A/C/Y/W VACCINE Aged Out No longer eligible b ased on patient's age to complete this topic PNEUMOCOCCAL VACCINE Aged Out No long er eligible based on patient's age to complete this topic
--- OUTSIDE RECORDS SUMMARY | 2024-08-19 07:33 | XMS_ITS | Encounter Summary ---
Author Organization [facility] Address [address] [facility] [place] [address] Care Team Providers Care Manager Travel Name Role Phone Unavailable Primary Care Provider Unavailabl e Encounter Details Date Type Department Care Team (Late st Contact Info) Description 11/11/2022 Lab Requisition [facility] - DermPath Lab [address] [facility], [place] [phone] Anneliese Jay MD [address] [place] [address] [place] [address] Neoplasm of uncertain behavior of [...] 12:00 AM CDT) Case Report Dermatopathology Report Case: [id number] Authorizing Provider: Anneliese Jay MD Collected: 11/11/2022 12:00 AM Ordering Location: [facility] Received: 11/12/2022 02:09 PM Pathologist: Susi Schmitz MD Specimens: A) - Skin, left lateral back B) - Skin, right ankle 3:39 PM CDT DERMATOPATHOLOGY LABORATORY Final Diagnosis [...] characteristic determined by the Dermatopathology Laboratory at [facility], directed by Dr. Alpesh Veliz. These tests need not be, and therefore are not, approved by the [place] Food and Drug Administration. The tests are used for clinical purposes. Billing Codes Specimen Charges Stain Charges 38908 34035 1 1 3 3:39 PM CDT DERMATOPATHOLOGY LABORATORY Embedded Images 3 3:39 PM CDT DERMATOPATHOLOGY LABORATORY Pathology/Cytology TISSUE SPECIMEN FROM SKIN / Unknown 11/11/2022 11/12/2022 2:09 PM CDT Miscellaneous samples (specimen) TISSUE SPECIMEN FROM SKIN / Unknown 11/11/2022 11/12/2022 2:09 PM CDT Anneliese Jay MD LAB - PATHOLOGY/CYTO LOGY ORDERABLES DERMATOPATHOLOGY LABORATORY [facility] - Department of Dermatology [facility] [address] [place] [address], [address] [phone] documented in this encounter Visit Diagnoses Diagnosis Neoplasm of uncertain behavior of skin Dermatitis, unspecified documented in this encounter
== END 2024-08-19 07:30 | disposition home or self-care (01) ==
PROVIDERS: PCP Clinical Nurse Specialist; Visit Provider Clinical Nurse Specialist
DX: R93.2 Abnormal findings on diagnostic imaging of liver and biliary tract (principal); R74.01 Elevation of levels of liver transaminase levels; K76.0 Fatty (change of) liver, not elsewhere classified
CPT/HCPCS: 74181; 76376; A9577

== ENCOUNTER 2024-12-15 12:50 | Outpatient (CLI) | payer BC, OTHER, SELFPAY ==
--- OUTSIDE RECORDS SUMMARY | 2024-12-15 12:58 | XMS_ITS | Encounter Summary ---
Author Organization [facility] Address [address] [place] [address] Care Team Providers Care Char Puller Name Role Phone Unavailable Primary Care Provider Unavailabl e Encounter Details Date Type Department Care Team (Late st Contact Info) Description 11/11/2022 Lab Requisition [facility] - DermPath Lab [address] [facility], [place] [phone] Anneliese Jay MD [address] [place] [address] [place] [phone] Neoplasm of uncertain behavior of skin; Dermatitis, unspecified Social History Tobacco Use Types Packs/Day Years Used Date Smoking Tobacco: Never Assessed Comments Unknown Sex and Gender Information Value Date Recorded Sex Assigned at Not on file Legal Sex Female 5:21 PM CDT Gender Identity Not on file [...] AM CDT) Case Report Dermatopathology Report Case: [id number] Authorizing Provider: Anneliese Jay MD Collected: 11/11/2022 12:00 AM Ordering Location: [facility] DermPath Lab Received: 11/12/2022 02:09 PM Pathologist: Susi Schmitz MD Specimens: A) - Skin, left lateral back B) - Skin, right ankle 3:39 PM CDT DERMATOPATHOLOGY LABORATORY Final Diagnosis Specimen A. 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 Alpesh Veliz. These tests need not be, and therefore are not, approved by the [place] Food and Drug Administration. The tests are used for clinical purposes. Billing Codes Specimen Charges Stain Charges 64398 85891 1 1 3 3:39 PM CDT DERMATOPATHOLOGY LABORATORY Embedded Images 3 3:39 PM CDT DERMATOPATHOLOGY LABORATORY Pathology/Cytology TISSUE SPECIMEN FROM SKIN / Unknown 11/11/2022 11/12/2022 2:09 PM CDT Miscellaneous samples (specimen) TISSUE SPECIMEN FROM SKIN / Unknown 11/11/2022 11/12/2022 2:09 PM CDT us Anneliese Jay MD LAB - PATHOLOGY/CYTOLOGY ORDERAB LES Final Result DERMATOPATHOLOGY LABORATORY [facility] - Department of Dermatology [facility] [address] [place] [address], [address] [phone] documented in this encounter Visit Diagnoses Diagnosis Neoplasm of uncertain behavior of skin Dermatitis, unspecified documented in this encounter
--- OUTSIDE RECORDS SUMMARY | 2024-12-15 12:58 | XMS_ITS | Clinical Summary ---
Author Organization [facility] Address [address] [place] [id number] Care Team Providers Care Firearms Model Maker Name Role Phone No, Physician Primary Care Provider [phone] Allergies No known active allergies Medical History [...] - season) 2024 07/20/2020 Influenza Vaccine (#1) 2025 , 02/16/2017, 02/26/2016, Additional history exists HPV Vaccines Completed 12/30/2019, 08/16, 06/22/2019 Pneumococcal vaccine <65 Aged Out No longer eligible based on patient's age to complete this topic Insurance [employer] PPO Care Teams Firearms Model Maker Relationship Specialty Start Date End Date No, Physician PCP - General 02/06/24
--- OUTSIDE RECORDS SUMMARY | 2024-12-15 12:58 | XMS_ITS | Clinical Summary ---
Author Organization [facility] Address [address] [facility] [place] [place] [address] Care Team Providers Care Emt Name Role Phone Unavailable Primary Care Provider Unavailabl e Source Comments [facility],non-owned Affiliates and Associated Physician Practices is amultiple site organization consisting of ambulatory clinics and hospital sitesin [place], [place], [place] and [place]. This disclosure is being madepursuant to the Care Everywhere program and may not contain all information available regarding this patient. Last updated 18.[facility] Social History Tobacco Use Types Packs/Day Years Used Date Smoking Tobacco: Never Assessed Comments Unknown Sex and Gender Information Value Date Recorded Sex Assigned at Not on file Legal Sex Female 5:21 PM CDT Gender Identity Not on file Sexual Orientation Not on file Plan of Treatment Health Maintenance Due Date Last Done Comments HIV SCREENING 2000 HEPATITIS C SCREENING 04/26/2003 DTAP/TDAP/TD VACCINES (1 - Tdap) 2004 HEPATITIS B VACCINE (1 of 3 - 19+ 3-dose series) 2004 PAP SMEAR 2006 HPV VACCINE (1 - 3-dose SCDM series) 2012 COVID-19 VACCINE ( - 2023-2 5 season) 2024 DEPRESSION SCREENING 05/18/2024 INFLUENZA VACCINE (#1) 2025 ZOSTER VACCINE (1 of 2) 2035 HIB [...] patient's age to complete this topic Insurance [employer]
--- OUTSIDE RECORDS SUMMARY | 2024-12-15 12:58 | XMS_ITS | Referral Summary ---
Author Organization [facility] Address [address] [place] [phone] Care Team Providers Care Rehabilitation Worker Name Role Phone No, Physician Primary Care Provider [phone] Allergies No known active allergies Social History [...] [employer] PPO Care Teams Rehabilitation Worker Relationship Specialty Start Date End Date No, Physician PCP - General 02/06/24
--- NOTE | 2024-12-15 13:01 | ECG_ITS ---
Test Date: 2024-12-15 13:18:23 Measurements Intervals [place] Rate: 69 P: -3 FL: 150 QRS: -13 QRSD: 90 T: 4 QT: 387 QTc: 417 Interpretive Statements SINUS RHYTHM POOR R WAVE PROGRESSION CONSIDER INFERIOR INFARCT, AGE INDETERMINATE BORDERLINE T WAVE ABNORMALITY- ANTERIOR LEADS BASELINE ARTIFACT- I, II, III, AVR, AVF ABNORMAL ECG No previous ECG available for comparison Electronically Signed On 12-16-2024 06:37:51 CDT by Tae Fall D.O.
[2024-12-15 13:46] LABS: Alanine Aminotransferase 95 U/L (6-35); Albumin Level 4.3 g/dL (3.5-5.1); Alkaline Phosphatase 50 U/L (38-126); Amylase 60 U/L (30-110); Anion Gap 6 mmol/L (4-12); Aspartate Amino Transferase 90 U/L (14-36); Bilirubin,Total 0.7 mg/dL (0.2-1.3); Blood Urea Nitrogen 7 mg/dL (7-17); Calcium 9.5 mg/dL (8.4-10.2); Carbon Dioxide 27 mmol/L (22-30); Chloride 104 mmol/L (98-107); Estimated Glomerular Filt Rate > 60; Glucose 141 mg/dL (65-110); Lipase 105 U/L (23-300); Potassium 3.9 mmol/L (3.4-5.0); Sodium 137 mmol/L (137-145); Total Protein 7.4 g/dL (6.3-8.2)
== END 2024-12-15 12:51 | disposition home or self-care (01) ==
PROVIDERS: Visit Provider Surgery
DX: Z01.818 Encounter for other preprocedural examination (principal); K81.1 Chronic cholecystitis; I10 Essential (primary) hypertension
CPT/HCPCS: 36415; 80053; 82150; 82248; 83690; 93005

== ENCOUNTER 2024-12-26 01:01 | Day surgery (SDC) | payer BC, OTHER, SELFPAY ==
[2024-12-12 08:42] VITALS: BMI 35.4
--- NOTE | 2024-12-12 08:58 | SUR.PREOP ---
Report to the Outpatient Waiting Room, entrance under the green pavilion located off [facility], at time 0600 on date 12/19/24. Planned Procedure Time: 0730.? Time changes happen often and if your time is changed the preop area will call you the afternoon before. - You and your visitor will be asked to self-screen and do not enter if you have any COVID symptoms. Please call surgeon if you need to reschedule. - A mask is optional within the hospital at this time. Patients may have clear liquids (water, carbonated beverages, clear teas, apple juice) until 3 hours prior to surgery with a maximum of 20 ounces. - No food from midnight until time of surgery and no smoking, or chewing tobacco (or any form of nicotine). No chewing gum, candy or mints. - Infants may have breast milk until 4 hours before surgery, formula 6 hours prior to surgery. - Children will be allowed to drink immediately following surgery.? If applicable, please bring a bottle or sippy cup to assist with drinking. Juice, water, soda, and popsicles are readily available.? For infants on formula, please bring formula the day of surgery.? Pacifiers are allowed. Take only the following medications with a SIP of water on the morning of surgery: N/A DO NOT STOP ANY OF YOUR OTHER PRESCRIPTION MEDICATIONS PRIOR TO SURGERY EXCEPT THE FOLLOWING Hold all vitamins and supplements for 3 days per anesthesiologist. Medications to discontinue per physician N/A Date to take last dose N/A Please no make-up, nail slovak, hairspray, perfume, deodorant, or body powder the day of surgery.? No jewelry (including any body piercings) or valuables the day of surgery, leave them at home.? Please take a shower or bath the night before, or the morning of, surgery with an antibacterial soap.? Wear comfortable, loose fitting clothing.? Children are encouraged to wear pajamas. - Jewelry must be removed prior to entering the operating room.? Rings and piercings that are not removed may be cut off. - The hospital will not accept responsibility for valuables.? - Please leave all valuables, including medications, at home the day of surgery. If you are going home after surgery, a licensed driver license reviewing officer must drive you home.? - NO public transportation without another adult if you receive anesthesia. - We recommend that an adult stay with you for 24 hours following discharge. - We also recommend that you do not drive, make important decision, drink alcoholic beverages, or take any drugs that were not prescribed by your health care provider for at least 24 hours after your discharge time. For Pediatric surgeries, we recommend two adults accompany the child home. Follow any additional instructions given to you from your surgeon. Telephone instructions given to DELMA ARZOLA and asked if any additional questions and then verbalized understanding. Patient advised to call surgeon office or pre surgery nurse liaison [phone] if any additional questions.
--- NOTE | 2024-12-14 10:29 | PC.NURSE ---
Report to the Outpatient Waiting Room, entrance under the green pavilion located off [facility], at time 1100__ on date __12/26/24. Planned Procedure Time: _1300_.? Time changes happen often and if your time is changed the preop area will call you the afternoon before. - You and your visitor will be asked to self-screen and do not enter if you have any COVID symptoms. Please call surgeon if you need to reschedule. - A mask is optional within the hospital at this time. Patients may have clear liquids (water, carbonated beverages, clear teas, apple juice) until 3 hours prior to surgery with a maximum of 20 ounces. - No food from midnight until time of surgery and no smoking, or chewing tobacco (or any form of nicotine). No chewing gum, candy or mints. - Infants may have breast milk until 4 hours before surgery, infant formula 6 hours prior to surgery. - Children will be allowed to drink immediately following surgery.? If applicable, please bring a bottle or sippy cup to assist with drinking. Juice, water, soda, and popsicles are readily available.? For infants on formula, please bring formula the day of surgery.? Pacifiers are allowed. Take only the following medications with a SIP of water on the morning of surgery: NONE DO NOT STOP ANY OF YOUR OTHER PRESCRIPTION MEDICATIONS PRIOR TO SURGERY EXCEPT THE FOLLOWING Hold all vitamins and supplements for 3 days per anesthesiologist. Medications to discontinue per physician Date to take last dose Please no make-up, nail mosotho, hairspray, perfume, deodorant, or body powder the day of surgery.? No jewelry (including any body piercings) or valuables the day of surgery, leave them at home.? Please take a shower or bath the night before, or the morning of, surgery with HIBICLENS antibacterial soap.? Wear comfortable, loose fitting clothing.? Children are encouraged to wear pajamas. - Jewelry must be removed prior to entering the operating room.? Rings and piercings that are not removed may be cut off. - The hospital will not accept responsibility for valuables.? - Please leave all valuables, including medications, at home the day of surgery. If you are going home after surgery, a licensed regional company hazmat tanker driver must drive you home.? - NO public transportation without another adult if you receive anesthesia. - We recommend that an adult stay with you for 24 hours following discharge. - We also recommend that you do not drive, make important decision, drink alcoholic beverages, or take any drugs that were not prescribed by your health care provider for at least 24 hours after your discharge time. For Pediatric surgeries, we recommend two adults accompany the child home. Follow any additional instructions given to you from your surgeon. Telephone instructions given to PATIENT_and asked if any additional questions and then verbalized understanding. Patient advised to call surgeon office or pre surgery nurse liaison [phone] if any additional questions.
[2024-12-26] VITALS (9 sets, daily range): BP systolic 107–144; BP diastolic 48–89; PULSE 63–81; RESP 14–18; TEMP 36.3–36.6; O2SAT 94–100; BMI 36.0
--- OUTSIDE RECORDS SUMMARY | 2024-12-26 01:04 | XMS_ITS | Clinical Summary ---
Author Organization [facility] [employer] Address [address] [place] [address] Care Team Providers Care Mortgage Loan Originator Name Role Phone Unavailable Primary Care Provider Unavailabl e Source Comments [facility] [employer],non-owned Affiliates and Associated Physician Practices is amultiple site organization consisting of ambulatory clinics and hospital sitesin [place], [place], [place] and [place]. This disclosure is being madepursuant to the Care Everywhere program and may not contain all information available regarding this patient. Last updated 18.[facility] [employer] Social History Tobacco Use Types Packs/Day Years [...]
--- OUTSIDE RECORDS SUMMARY | 2024-12-26 01:04 | XMS_ITS | Encounter Summary ---
Author Organization [facility] Address [address] [place] [address] Care Team Providers Care General Accounting Clerk Name Role Phone Unavailable Primary Care Provider Unavailabl e Encounter Details Date Type Department Care Team (Late st Contact Info) Description 11/11/2022 Lab Requisition [facility] - DermPath Lab [address] [place] [id number] Anneliese Jay MD [address] [place] [address] [place] [phone] Neoplasm of uncertain behavior of skin; Dermatitis, [...] AM CDT) Case Report Dermatopathology Report Case: [id number] Authorizing Provider: Anneliese Jay MD Collected: 11/11/2022 12:00 AM Ordering Location: [facility] DermPath Lab Received: 11/12/2022 02:09 PM Pathologist: Ssui Schmitz MD Specimens: A) - Skin, left [...] characteristic determined by the Dermatopathology Laboratory at [facility], directed by Dr. Alpesh Veliz. These tests need not be, and therefore are not, approved by the [place] Food and Drug Administration. The tests are used for clinical purposes. Billing Codes Specimen Charges Stain Charges 57950 [id number] 1 1 3 3:39 PM CDT DERMATOPATHOLOGY LABORATORY Embedded Images 3 3:39 PM CDT DERMATOPATHOLOGY LABORATORY Pathology/Cytology TISSUE SPECIMEN FROM SKIN / Unknown 11/11/2022 11/12/2022 2:09 PM CDT Miscellaneous samples (specimen) TISSUE SPECIMEN FROM SKIN / Unknown 11/11/2022 11/12/2022 2:09 PM CDT us Anneliese Jay MD LAB - PATHOLOGY/CYTOLOGY ORDERAB LES Final Result DERMATOPATHOLOGY LABORATORY [facility] - Department of Dermatology [facility] [address] [place] [address], [address] [phone] documented in this encounter Visit Diagnoses Diagnosis Neoplasm of uncertain behavior of skin Dermatitis, unspecified documented in this encounter
--- OUTSIDE RECORDS SUMMARY | 2024-12-26 01:04 | XMS_ITS | Clinical Summary ---
Author Organization [facility] Address [address] [place] [id number] Care Team Providers Care Qa Tester Name Role Phone No, Physician Primary Care Provider [phone] Allergies No known active allergies Medical History [...] patient's age to complete this topic Insurance [employer] P[employer] Care Teams Qa Tester Relationship Specialty Start Date End Date No, Physician PCP - General 02/06/24
--- NOTE | 2024-12-26 11:48 | PM.IMHP ---
H&P: HPI History of Present Illness Date/Time: 12/26/24 11:48 Chief Complaint: cholecystitis Narrative: Tammy is a 39 y/o female who presents for a gallbladder evaluation at the request of MARGO Fu. She reports experiencing RUQ abdominal pain that started 2 months ago. She also notes intermittent diarrhea and constipation. She feels her symptoms happen after eating any food. An US right upper quadrant was done at [facility] on 08/01/24 and showed diffuse fatty infiltration of liver and prominent common bile duct, nonspecific. Review of Systems Review of Systems: All systems reviewed & are unremarkable except as noted in HPI and below PMFSH Past Medical History Medical History Hypersomnia Hospital discharge follow-up Encounter to establish care Near syncope History of drainage of abscess Hypertension Surgical History Surgical History History of tubal ligation Family History Family History Father Alcoholism in family member Colon cancer Hypertension Mother Alcoholism in family member Sibling Hypertension Grandparent Skin cancer Grandparent Bone cancer Breast cancer Social History Social History Smoking status: Never smoker Alcohol intake: never Alcohol use details: Occasionally Substance use: never Substance use type: does not use Do You Feel Safe in your Home?: Yes Lack of Transportation: No Lack of Food: Never True Current Housing: I Have Housing Concerned About Future Housing: No Difficulty Paying Gas/Electric Bills: No Difficulty Paying for Meds: No Currently Unemployed: No Education: High School Diploma/GED Living arrangements: with family Occupation/Education: occupation Additional occupation/education comments: [employer] Gender identity (if verbalized by the patient): Female Sexual Orientation (if Verbalized by the Patient): Straight or Heterosexual Spiritual care concerns: No Agree to blood products: Yes Meds Home Medications and Allergies Home Medications ?Medication ?Instructions ?Recorded ?Confirmed ?Type CPAP #1 ea 07/01/24 12/12/24 Rx lisinopril 5 mg tablet See Rx Instructions .Route 10/11/24 12/14/24 Rx .COMPLEX #90 tabs rosuvastatin 10 mg tablet See Rx Instructions .Route 10/11/24 12/14/24 Rx .COMPLEX #90 tabs Allergies Allergy/AdvReac Type Severity Reaction Status Date / Time No Known Allergies Allergy Verified 12/14/24 10:27 Exam Const: General: cooperative, comfortable, no acute distress and obese Resp: Auscultation: clear to auscultation bilaterally Cardio: Rate: regular rate Rhythm: regular rhythm GI: Inspection: normal to inspection, non-distended and obesity GI Palp: No abdominal tenderness and Yes Soft to palpation Assessment and Plan Assessment and plan (1) Chronic cholecystitis: Code(s): K81.1 - Chronic cholecystitis Status: Acute Assessment and Plan: will set up for laparoscopic cholecystectomy
--- NOTE | 2024-12-26 11:49 | WPDHPUPDATE1 ---
History and Physical Update Update Date/Time: 12/26/24 11:49 History and Physical has been reviewed, including an updated exam of the patient. There are NO changes in the patient's condition. Risks, benefits, and alternatives have been discussed and questions answered. Patient agrees to proceed with procedure.
[2024-12-26] MEDS: KETOROLAC 15 MG/ML VIAL (*BKC) IV PUSH (12:00)
[2024-12-26] MEDS: LACTATED RINGERS 1,000 ML 30 ML IV CONT ×2 (12:00→14:35)
[2024-12-26] MEDS: ACETAMINOPHEN 500 MG TABLET 1000 MG PO (12:00)
--- NOTE | 2024-12-26 12:58 | WPDANESEPPF ---
Anes - Initial Pre Proc Eval Procedure: Operation Date: 12/26/24 13:00 Proposed Procedures p Laparoscopic Cholecystectomy - Savannah Mcnair MD Date/Time: 12/26/24 12:58 Surgeon: Savannah Mcnair MD Pre Op Diagnosis: Chr Cholecystitis Patient Data Age: 39 Gender: F Height: 1.6 m Weight: 92.3 kg Last Vital Signs Temp 36.6 C 12/26/24 12:50 Pulse 65 12/26/24 12:50 BP 144/89 H 12/26/24 12:50 Pulse Ox 100 12/26/24 12:50 O2 Del Method Room Air 12/26/24 12:50 Allergies Allergy/AdvReac Type Severity Reaction Status Date / Time No Known Allergies Allergy Verified 12/14/24 10:27 Home Medications ?Medication ?Instructions ?Recorded ?Confirmed ?Type CPAP #1 ea 07/01/24 12/12/24 Rx lisinopril 5 mg tablet See Rx Instructions .Route 10/11/24 12/14/24 Rx .COMPLEX #90 tabs rosuvastatin 10 mg tablet See Rx Instructions .Route 10/11/24 12/14/24 Rx .COMPLEX #90 tabs Patient hx anesthesia problems: none Family hx anesthesia problems: none Results Review: All pre-operative results and documents have been reviewed as part of the pre-operative evaluation. [facility] Past Medical History Medical History (Updated 12/26/24 @ 12:58 by Reji Alarcon DO) GIANNI (obstructive sleep apnea) Hyperlipidemia Hypersomnia Hospital discharge follow-up Encounter to establish care Near syncope History of drainage of abscess Hypertension Surgical History Surgical History History of tubal ligation Family History Family History Father Alcoholism in family member Colon cancer Hypertension Mother Alcoholism in family member Sibling Hypertension Grandparent Skin cancer Grandparent Bone cancer Breast cancer Social History Social History Smoking status: Never smoker Alcohol intake: never Alcohol use details: Occasionally Substance use: never Substance use type: does not use Do You Feel Safe in your Home?: Yes Lack of Transportation: No Lack of Food: Never True Current Housing: I Have Housing Concerned About Future Housing: No Difficulty Paying Gas/Electric Bills: No Difficulty Paying for Meds: No Currently Unemployed: No Education: High School Diploma/GED Living arrangements: with family Occupation/Education: occupation Additional occupation/education comments: [employer] Gender identity (if verbalized by the patient): Female Sexual Orientation (if Verbalized by the Patient): Straight or Heterosexual Spiritual care concerns: No Agree to blood products: Yes Anes - Eval Final PreProcedure Day of Procedure 12/26/24 12:58 Patient weight: obese Heart: regular rate and rhythm Lungs: clear to auscultation Airway: Mallampati scale class II Neurological: alert and oriented Last oral intake: >/= 8 hours ASA classification: III Emergent: no Anesthetic plan: proceed Anesthesia type and monitoring: general GIVS and standard monitoring Results Review: All pre-operative results and documents have been reviewed as part of the pre-operative evaluation. Informed Consent: The patient's anesthetic plan and its attendant risks and benefits were discussed with the patient/family/POA. Questions were solicited and answers provided to the satisfaction of the patient/family/POA.
--- NOTE | 2024-12-26 12:58 | SUR.PREOP ---
APPROX 6 INCH SCRATCH NOTED TO LEFT MID UPPER ABD.
[2024-12-26] MEDS: ceFAZolin 2 GM in SODIUM CHLORIDE 0.9% IV 50 ML 100 ML IVPB (13:39)
--- NOTE | 2024-12-26 14:07 | S_PTH ---
PATIENT: Tammy Burdick LOC: [facility] U#:[id number] AGE/SX: 39/F ROOM: RE12/26/[address]: Savannah Mcnair MD : 1985 BED: DIS: 12/26/2024 SPEC #: [id number] RECD: 12/27/24 07:38 STATUS: ANNABELLA REQ #: [id number] TRISTIN: 12/26/24 14:[address]: Savannah Mcnair DEPT: [facility] Surgical RECD BY: Louis Barbosa Tissues: A - Gallbladder Procedures: Hematoxylin and Eosin Stain Gross and Microscopic Level 3
[2024-12-26] MEDS: BUPIVACAINE/EPINEPHRINE 0.5% 50 ML VIAL 30 ML INFILTRATE (14:17)
--- NOTE | 2024-12-26 14:35 | P.OP_ITS ---
Procedure Note - Detailed Date of Procedure 12/26/24 Pre-op Diagnosis chronic cholecystitis Post-op Diagnosis Same Procedure Performed Laparoscopic cholecystectomy Surgeon Savannah Mcnair MD Anesthesia General Indications 39-year-old female presenting to the office with postprandial right upper quadrant abdominal pain associated with nausea and bloating. Workup, including imaging, significant for chronic cholecystitis Findings moderate cholecystitis Description of Procedure The patient was taken to the operating room placed in the supine position. After adequate induction of general anesthesia, the patient was prepped and draped in normal sterile fashion. A time-out was then performed to verify the patient's identity as well as the procedure being performed. I then made a 5 mm incision in the infraumbilical region. Through this, a Veress needle was placed into the peritoneal cavity and CO2 gas was then insufflated. After adequate pneumoperitoneum was achieved, the Veress needle was removed and a 5 mm optiview trocar was placed through this incision under direct visualization. I then placed the laparoscope through this trocar site and under direct visualization placed a further 12 mm subxiphoid port as well as 2 additional 5 mm ports in the right upper abdomen. The gallbladder was then identified and was noted to be moderately inflamed, distended. I was able to place a grasper at the dome of the gallbladder and this was retracted anterior and cephalad up over the liver. A 2nd retractor was then placed at the infundibulum and retracted laterally, this allowed visualization of the triangle of Calot. I then was able to visualize the cystic duct in its entirety from its proximal insertion into the gallbladder, to its distal junction with the common hepatic/common bile duct j unction. At this point, I carefully skeletonized the proximal cystic duct with the [place] dissector. I then clipped and transected the proximal cystic duct. Next I visualized the cystic artery. Again the artery was skeletonized, clipped, and transected. I then used the Bovie cautery to take down the peritoneal attachments of the gallbladder off the liver bed. This was somewhat difficult given the amount of inflammation in the posterior space. Once the gallbladder specimen was completely detached, an endo-pouch was placed through the 12 mm port site. I then placed the gallbladder specimen into the Endo pouch and removed the endo-pouch from the 12 mm port site. The specimen will now be sent to pathology for further review. I then copiously irrigated the right upper quadrant. Hemostasis was noted in the liver bed, the clips were noted to be in good position on both the cystic duct stump and the cystic artery stump. No other pathology was noted in the right upper quadrant. I then moved the laparoscope to the subxiphoid port. No iatrogenic injury or other pathology was noted in the lower abdomen. I then closed the 12 mm trocar site under direct visualization using the Kike cone and 0 Vicryl suture. At this point, the abdomen was desufflated and all ports removed. All port sites were then closed with 4.O Monocryl subcuticular sutures. Dermabond was placed on each incision. The patient tolerated the procedure well, was extubated in the operating room postoperative and will be transferred to the recovery room in stable condition Estimated Blood Loss 5 Drains No Packing No Pathology Yes Complications No immediate complications Condition Stable Disposition PACU [facility] Billing Surgery - Charge Forward: Surgery Billing
[2024-12-26] MEDS: fentaNYL CITRATE INJ (*CRX) 100 MCG/2 ML VIAL 25 MCG IV PUSH ×8 (14:41→15:29)
[2024-12-26] MEDS: oxyCODONE HCL (*CRX) 5 MG TAB IR PO (15:52)
== END 2024-12-26 16:33 | disposition home or self-care (01) ==
PROVIDERS: Visit Provider Surgery
PROC: 0FT44ZZ Resection of Gallbladder, Percutaneous Endoscopic Approach (ICD-10-PCS; CPT 47562; principal; 2024-12-26 13:00)
DX: K81.1 Chronic cholecystitis (principal); E78.5 Hyperlipidemia, unspecified; I10 Essential (primary) hypertension; G47.10 Hypersomnia, unspecified; G47.33 Obstructive sleep apnea (adult) (pediatric); E66.9 Obesity, unspecified; Z68.36 Body mass index [BMI] 36.0-36.9, adult; Z99.89 Dependence on other enabling machines and devices; Z98.51 Tubal ligation status; Z80.0 Family history of malignant neoplasm of digestive organs; Z84.0 Family history of diseases of the skin and subcutaneous tissue; Z80.8 Family history of malignant neoplasm of other organs or systems; Z80.3 Family history of malignant neoplasm of breast
CPT/HCPCS: 47562; 88304; J0690; A9270; J1885; J2004; J2250; J2405; J2704; J3010; J7030; J7120